=== PATIENT | female | born 1985 | race Caucasian/White ===

== ENCOUNTER → 2018-06-25 09:48 | Outpatient (CLI) | payer MEDICARE, MEDICAID, SELFPAY ==
[2018-06-25 10:58] LABS: FREE T4 1.26 ng/dL (0.76-1.46)
[2018-06-25 21:00] LABS: T3,Free 3.6 pg/ml (2.8-5.3)
== END ==
PROVIDERS: PCP Family Medicine; Visit Provider Family Medicine
DX: F39 Unspecified mood [affective] disorder (principal); G43.009 Migraine without aura, not intractable, without status migrainosus; G93.2 Benign intracranial hypertension; E03.9 Hypothyroidism, unspecified
CPT/HCPCS: 36415; 64405; 99214; 84439; 84443; 84481

== ENCOUNTER → 2018-07-07 01:10 | Outpatient (CLI) | payer MEDICARE, MEDICAID, SELFPAY ==
--- NOTE | 2018-07-07 12:53 | DI.REPORT_ITS ---
SYMPTOMS/DIAGNOSIS: UNABLE TO FIND IUD STRING, MALPOSITIONED IUD, MENORRHAGIA, DYSMENORRHEA, T83.32XA, N92.0, N94.6 PELVIC ULTRASOUND: Transabdominal and transvaginal exams were performed. The transabdominal images are limited by patient body habitus. The uterus measures 9.9 x 4.2 x 6.3 cm. An IUD is seen appropriately positioned within the endometrial cavity. The endometrial stripe measures 3 mm. A small amount of free fluid is seen adjacent to the uterus. The ovaries were not able to be identified. The kidneys are unremarkable. IMPRESSION: IUD appears appropriately positioned within the endometrium.
== END ==
PROVIDERS: PCP Family Medicine; Visit Provider Obstetrics & Gynecology
DX: N92.0 Excessive and frequent menstruation with regular cycle (principal); N94.6 Dysmenorrhea, unspecified; T83.32XA Displacement of intrauterine contraceptive device, initial encounter
CPT/HCPCS: 76830; 76856

== ENCOUNTER → 2018-07-07 15:21 | Outpatient (REF) | payer MEDICARE, MEDICAID, SELFPAY ==
--- NOTE | 2018-07-07 15:00 | ENDOMET_PTH ---
PATIENT: Tricia Calderón LOC: [facility] U#:[id number] AGE/SX: 40/F ROOM: RE07/07/[address]: Kathryn Trammell MD : [id number] BED: DIS: SPEC #: [id number] RECD: 07/07/18 16:48 STATUS: SCOT REQ #: [id number] ANISH: 07/07/18 15:[address]: Kathryn Trammell DEPT: Surgical Specimen RECD BY: Maty Valentin ENTERED: 07/07/18 16:49 SP TYPE: Endomet OTHR DR: Jonathon Luevano MD Tissues: 1 - ENDOMETRIUM BX/CURRETTE Procedures: GROSS AND MICRO LEVEL 4 Comments: [id number]
== END ==
LOC: LBN 15:21
PROVIDERS: PCP Family Medicine; Visit Provider Obstetrics & Gynecology
DX: N85.8 Other specified noninflammatory disorders of uterus (principal); N92.0 Excessive and frequent menstruation with regular cycle; T38.5X5A Adverse effect of other estrogens and progestogens, initial encounter
CPT/HCPCS: 88305

== ENCOUNTER 2019-02-17 17:43 | Emergency (ER) | payer MEDICARE, MEDICAID, SELFPAY ==
[2019-02-17 17:48] VITALS: BP 119/75; PULSE 76; RESP 16; TEMP 36.8; O2SAT 96
--- NOTE | 2019-02-17 17:58 | DI.RAD_ITS ---
SYMPTOM/DIAGNOSIS: PAIN, S/P FALL LEFT FOOT: There is no acute fracture involving the mid foot or forefoot. A distal fibular fracture is identified. Please the dictation regarding the ankle series on this patient. LEFT ANKLE: A fractured lateral malleolus extends to the ankle mortise. There is very minimal lateral angulation of the distal fracture fragment. Also mild widening of the lateral aspect of the talofibular joint is noted without evidence of a hilda dislocation. The medial malleolus is intact. There is generalized soft tissue swelling about the ankle. IMPRESSION: A fracture of the distal fibula is noted extending to the ankle mortise. There is minimal lateral angulation of the distal fragment. There is some very mild widening of the lateral aspect of the tibiotalar joint.
--- NOTE | 2019-02-17 17:59 | W.ED.GENAD ---
Discharge Plan Disposition Patient Disposition: HOME Condition: Stable Discharge Details Chief Complaint: Orthopedic Clinical Impression: Left fibular fracture Primary Care Provider: Addy Bermeo ED Provider: Lucas Lindsey Home Meds and New Rx's Prescriptions: New oxycodone 5 mg tablet 5 mg PO Q6H PRN (Reason: pain) Qty: 10 RF: 0 No Action acetaminophen [Tylenol] 325 MG tablet 325 mg PO PRN RF: 0 hydroxychloroquine [Plaquenil] 200 MG tablet 200 mg PO BID RF: 0 multivitamin [Daily Vitamin] 1 EACH tablet 1 ea PO DAILY RF: 0 Lyrica 150 MG capsule 150 mg PO BID RF: 0 loratadine 10 MG tablet 10 mg PO DAILY 30 Days Qty: 30 RF: 5 albuterol sulfate [Proventil HFA] 6.7 GM HFA aerosol inhaler 2 puff Inhalation Q4H PRN Qty: 1 RF: 2 prochlorperazine maleate 5 MG tablet 1 - 2 tab PO Q8H PRN Qty: 60 RF: 5 levothyroxine 175 mcg tablet 175 mcg PO DAILY Qty: 90 RF: 3 escitalopram oxalate 10 mg tablet 10 mg PO DAILY 90 Days Qty: 90 RF: 3 hydroxyzine HCl 50 MG tablet 1 - 2 mg PO BID RF: 0 Discharge Instructions Instructions: Ankle Fracture (ED) Additional Instructions: call orthopedics in the morning for an appointment for follow up Referrals: Javed Benites MD [ [facility] STAFF PHYSICIAN] - Medical Decision Making Pt states on Friday she was wearing crocs outside and slipped and invertedher left ankle. did not have loc or have head trauma. Has had left ankle pain and foot pain since so came here. HAs swelling to the left lateral malleolus and mid 5th metatarsal, no mid foot pain and 2+ dp/pt pulses. Will obtain xray to eval for fx, likely sprain. Mechanism isn't typical of achilles tendon rupture and doesn't have any palpable defect of the achilles tendon xray shows fibula fracture, I do not see any other fx's on my read. Will place in walking boot and staes she has crutches already, will have her f/u with ortho Differential Diagnosis sprain, strain, fx Imaging Data Radiologic Study: Attestation: I personally reviewed and interpreted this imaging study as follows: Imaging: X-Ray My impression: fibula fracture on ankle xray Radiologic Study #2: Attestation: I personally reviewed and interpreted this imaging study as follows: Imaging: X-Ray My impression: no findings on foot xray other than fibula fx HPI General Mode of arrival: ambulatory. Date/Time Provider Initiated Documentation: 02/17/19 17:55. Limitations to Documentation: no limitations. Information obtained by: patient. History of Present Illness 33 year old F presents to the emergency department with the chief complaint of left ankle and foot pain, described as severe, Quality is described as aching, and is localized to the left and lower extremity. Patient started experiencing this day(s) (3) and it has been constant. Rest improves symptom(s), Movement worsens symptoms . Patient did receive the following treatments prior to arrival, none Related Data Home Medications Medication Instructions Recorded Confirmed acetaminophen [Tylenol] 325 mg PO PRN 08/04/13 02/17/19 hydroxychloroquine [Plaquenil] 200 mg PO BID 08/04/13 02/17/19 Lyrica 150 mg PO BID tab-cap 01/09/15 02/17/19 multivitamin [Daily Vitamin] 1 ea PO DAILY 01/09/15 02/17/19 loratadine 10 mg PO DAILY 30 Days #30 tab-cap 09/08/17 02/17/19 albuterol sulfate [Proventil HFA] 2 puff INHALATION Q4H PRN #1 11/12/17 02/17/19 inhaler prochlorperazine maleate 1 - 2 tab PO Q8H PRN #60 tab-cap 03/25/18 02/17/19 levothyroxine 175 mcg tablet 175 mcg PO DAILY #90 tab-cap 10/26/18 02/17/19 escitalopram 10 mg tablet 10 mg PO DAILY 90 Days #90 tab-cap 02/01/19 02/17/19 hydroxyzine HCl 1 - 2 mg PO BID 02/17/19 02/17/19 oxycodone 5 mg PO Q6H PRN #10 tab 02/17/19 Previous Rx's Medication Instructions Recorded loratadine 10 mg PO DAILY 30 Days #30 tab-cap 09/08/17 albuterol sulfate [Proventil HFA] 2 puff INHALATION Q4H PRN #1 11/12/17 inhaler prochlorperazine maleate 1 - 2 tab PO Q8H PRN #60 tab-cap 03/25/18 levothyroxine 175 mcg tablet 175 mcg PO DAILY #90 tab-cap 10/26/18 escitalopram 10 mg tablet 10 mg PO DAILY 90 Days #90 tab-cap 02/01/19 oxycodone 5 mg PO Q6H PRN #10 tab 02/17/19 Allergies Allergy/AdvReac Type Severity Reaction Status Date / Time hydromorphone HCl Allergy Severe Unverified 02/17/19 17:55 [From Dilaudid] prednisone Allergy Mild Skin Rash Unverified 02/17/19 17:55 codeine AdvReac Severe severe GI Unverified 02/17/19 17:55 upset General Stated Complaint: Orthopedic REY: 4 Review of Systems Review of Systems All systems reviewed & are unremarkable except as noted in HPI and below Constitutional Denies chills and Denies fever(s) ENT Denies change in voice Cardiovascular Denies chest pain and Denies dyspnea Respiratory Denies cough and Denies dyspnea Gastrointestinal Denies abdominal pain, Denies nausea and Denies vomiting Integumentary/Breasts Denies rash PFSH Medical History Attention deficit hyperactivity disorder Cutaneous lupus erythematosus Hypothyroidism Surgical History Appendectomy (~2005) section FRACTURE REPAIR Ligation of fallopian tube Myringotomy w/ PE (pressure equalizing) tubes Oophrectomy, Right (~2008) Family History Mother Mental disorder Father Hyperlipidemia Sister Mental disorder Brother Mental disorder aunt Diabetes uncle Hyperlipidemia Grandfather Diabetes FAMILY HISTORY No problems noted. Social History Smoking/Tobacco Use Status: Current every day Tobacco Type: cigarettes Alcohol Intake: current Alcohol Intake frequency: a few times a month Drug use: Occasionally Substance use type: marijuana Duration: 30-45 minutes/day Frequency: 3-4 times per week Seatbelt use: always Do you feel safe in your relationship?: Yes Exam Const General: no acute distress Orientation: alert HENSC Head: normal to inspection Ears: external ears normal General nose exam: external nose normal Mouth: moist mucous membranes Eyes General: appearance normal, both eyes and all related structures Neck Neck: normal visual inspection Resp Effort & Inspection: normal respiratory effort and able to speak in complete sentences Cardio Rate: regular rate Skin General skin exam: no rashes or lesions noted Neuro General: alert and oriented x3 Extrem General: normal capillary refill Psych Mental Status: mental status grossly normal Course Vital Signs Temperature 36.8 C 02/17/19 17:48 Pulse 76 02/17/19 17:48 Respiratory Rate 16 02/17/19 17:48 Blood Pressure 119/75 02/17/19 17:48 Pulse Oximetry 96 02/17/19 17:48 Temperature 36.8 C 02/17/19 17:48 Temperature Source Skin 02/17/19 17:48 Pulse 76 02/17/19 17:48 Respiratory Rate 16 02/17/19 17:48 Respiratory Effort 02/17/19 17:58 Blood Pressure 119/75 02/17/19 17:48 Blood Pressure Position Sitting 02/17/19 17:48 Pulse Oximetry 96 02/17/19 17:48 Oxygen Delivery Method Room Air 02/17/19 17:48 Oxygen Flow Rate 0 02/17/19 17:48 Pain Level 10 02/17/19 17:57
--- NOTE | 2019-02-17 18:03 | ED.GENADUL_ITS ---
Discharge Plan Disposition Patient Disposition: HOME Condition: Stable Discharge Details Chief Complaint: Orthopedic Clinical Impression: Left fibular fracture Primary Care Provider: Addy Bermeo ED Provider: Lucas Lindsey Home Meds and New Rx's Prescriptions: New oxycodone 5 mg tablet 5 mg PO Q6H PRN (Reason: pain) Qty: 10 RF: 0 No Action acetaminophen [Tylenol] 325 MG tablet 325 mg PO PRN RF: 0 hydroxychloroquine [Plaquenil] 200 MG tablet 200 mg PO BID RF: 0 multivitamin [Daily Vitamin] 1 EACH tablet 1 ea PO DAILY RF: 0 Lyrica 150 MG capsule 150 mg PO BID RF: 0 loratadine 10 MG tablet 10 mg PO DAILY 30 Days Qty: 30 RF: 5 albuterol sulfate [Proventil HFA] 6.7 GM HFA aerosol inhaler 2 puff Inhalation Q4H PRN Qty: 1 RF: 2 prochlorperazine maleate 5 MG tablet 1 - 2 tab PO Q8H PRN Qty: 60 RF: 5 levothyroxine 175 mcg tablet 175 mcg PO DAILY Qty: 90 RF: 3 escitalopram oxalate 10 mg tablet 10 mg PO DAILY 90 Days Qty: 90 RF: 3 hydroxyzine HCl 50 MG tablet 1 - 2 mg PO BID RF: 0 Discharge Instructions Instructions: Ankle Fracture (ED) Additional Instructions: call orthopedics in the morning for an appointment for follow up Referrals: Javed Benites MD [ [facility] STAFF PHYSICIAN] - Medical Decision Making Pt states on Friday she was wearing crocs outside and slipped and invertedher left ankle. did not have loc or have head trauma. Has had left ankle pain and foot pain since so came here. HAs swelling to the left lateral malleolus and mid 5th metatarsal, no mid foot pain and 2+ dp/pt pulses. Will obtain xray to eval for fx, likely sprain. Mechanism isn't typical of achilles tendon rupture and doesn't have any palpable defect of the achilles tendon xray shows fibula fracture, I do not see any other fx's on my read. Will place in walking boot and staes she has crutches already, will have her f/u with ortho Differential Diagnosis sprain, strain, fx Imaging Data Radiologic Study: Attestation: I personally reviewed and interpreted this imaging study as follows: Imaging: X-Ray My impression: fibula fracture on ankle xray Radiologic Study #2: Attestation: I personally reviewed and interpreted this imaging study as follows: Imaging: X-Ray My impression: no findings on foot xray other than fibula fx HPI General Mode of arrival: ambulatory . Date/Time Provider Initiated Documentation: 02/17/19 17:55 . Limitations to Documentation: no limitations . Information obtained by: patient . History of Present Illness 33 year old F presents to the emergency department with the chief complaint of left ankle and foot pain, described as severe, Quality is described as aching, and is localized to the left and lower extremity. Patient started experiencing this day(s) (3) and it has been constant. Rest improves symptom(s), Movement worsens symptoms . Patient did receive the following treatments prior to arrival, none Related Data Home Medications Medication Instructions Recorded Confirmed acetaminophen [Tylenol] 325 mg PO PRN 08/04/13 02/17/19 hydroxychloroquine [Plaquenil] 200 mg PO BID 08/04/13 02/17/19 Lyrica 150 mg PO BID tab-cap 01/09/15 02/17/19 multivitamin [Daily Vitamin] 1 ea PO DAILY 01/09/15 02/17/19 loratadine 10 mg PO DAILY 30 Days #30 tab-cap 09/08/17 02/17/19 albuterol sulfate [Proventil HFA] 2 puff INHALATION Q4H PRN #1 11/12/17 02/17/19 inhaler prochlorperazine maleate 1 - 2 tab PO Q8H PRN #60 tab-cap 03/25/18 02/17/19 levothyroxine 175 mcg tablet 175 mcg PO DAILY #90 tab-cap 10/26/18 02/17/19 escitalopram 10 mg tablet 10 mg PO DAILY 90 Days #90 tab-cap 02/01/19 02/17/19 hydroxyzine HCl 1 - 2 mg PO BID 02/17/19 02/17/19 oxycodone 5 mg PO Q6H PRN #10 tab 02/17/19 Previous Rx's Medication Instructions Recorded loratadine 10 mg PO DAILY 30 Days #30 tab-cap 09/08/17 albuterol sulfate [Proventil HFA] 2 puff INHALATION Q4H PRN #1 11/12/17 inhaler prochlorperazine maleate 1 - 2 tab PO Q8H PRN #60 tab-cap 03/25/18 levothyroxine 175 mcg tablet 175 mcg PO DAILY #90 tab-cap 10/26/18 escitalopram 10 mg tablet 10 mg PO DAILY 90 Days #90 tab-cap 02/01/19 oxycodone 5 mg PO Q6H PRN #10 tab 02/17/19 Allergies Allergy/AdvReac Type Severity Reaction Status Date / Time hydromorphone HCl Allergy Severe Unverified 02/17/19 17:55 [From Dilaudid] prednisone Allergy Mild Skin Rash Unverified 02/17/19 17:55 codeine AdvReac Severe severe GI Unverified 02/17/19 17:55 upset General Stated Complaint: Orthopedic REY: 4 Review of Systems Review of Systems All systems reviewed & are unremarkable except as noted in HPI and below Constitutional Denies chills and Denies fever(s) ENT Denies change in voice Cardiovascular Denies chest pain and Denies dyspnea Respiratory Denies cough and Denies dyspnea Gastrointestinal Denies abdominal pain, Denies nausea and Denies vomiting Integumentary/Breasts Denies rash PFSH Medical History Attention deficit hyperactivity disorder Cutaneous lupus erythematosus Hypothyroidism Surgical History Appendectomy (~2005) section FRACTURE REPAIR Ligation of fallopian tube Myringotomy w/ PE (pressure equalizing) tubes Oophrectomy, Right (~2008) Family History Mother Mental disorder Father Hyperlipidemia Sister Mental disorder Brother Mental disorder aunt Diabetes uncle Hyperlipidemia Grandfather Diabetes FAMILY HISTORY No problems noted. Social History Smoking/Tobacco Use Status: Current every day Tobacco Type: cigarettes Alcohol Intake: current Alcohol Intake frequency: a few times a month Drug use: Occasionally Substance use type: marijuana Duration: 30-45 minutes/day Frequency: 3-4 times per week Seatbelt use: always Do you feel safe in your relationship?: Yes Exam Const General: no acute distress Orientation: alert HENNE Head: normal to inspection Ears: external ears normal General nose exam: external nose normal Mouth: moist mucous membranes Eyes General: appearance normal, both eyes and all related structures Neck Neck: normal visual inspection Resp Effort & Inspection: normal respiratory effort and able to speak in complete sentences Cardio Rate: regular rate Skin General skin exam: no rashes or lesions noted Neuro General: alert and oriented x3 Extrem General: normal capillary refill Psych Mental Status: mental status grossly normal Course Vital Signs Temperature 36.8 C 02/17/19 17:48 Pulse 76 02/17/19 17:48 Respiratory Rate 16 02/17/19 17:48 Blood Pressure 119/75 02/17/19 17:48 Pulse Oximetry 96 02/17/19 17:48 Temperature 36.8 C 02/17/19 17:48 Temperature Source Skin 02/17/19 17:48 Pulse 76 02/17/19 17:48 Respiratory Rate 16 02/17/19 17:48 Respiratory Effort 02/17/19 17:58 Blood Pressure 119/75 02/17/19 17:48 Blood Pressure Position Sitting 02/17/19 17:48 Pulse Oximetry 96 02/17/19 17:48 Oxygen Delivery Method Room Air 02/17/19 17:48 Oxygen Flow Rate 0 02/17/19 17:48 Pain Level 10 02/17/19 17:57
--- NOTE | 2019-02-17 19:06 | DI.VRAD_ITS ---
EXAM: XR Left Ankle Complete, 3 or more Views EXAM DATE/TIME: 02/17/2019 5:59 PM CLINICAL HISTORY: 33 years old, female; Pain; Ankle; Left; Patient HX: Fell a few days ago, pain left ankle TECHNIQUE: Imaging protocol: XR Left ankle 3 or more views. COMPARISON: No relevant prior studies available. FINDINGS: Bones/joints: Acute fracture of the distal fibula extending to the level of the ankle mortise. Minimal lateral angulation of the distal fracture fragment. Mild widening of the lateral aspect of the tibiotalar joint without hilda dislocation. Lateral view was provided with foot films. The medial malleolus is intact. Soft tissues: Generalized soft tissue swelling. IMPRESSION: 1. Acute fracture of the distal fibula extending to the level of the ankle mortise. Minimal lateral angulation of the distal fracture fragment. 2. Mild widening of the lateral aspect of the tibiotalar joint without hilda dislocation. Dictated and Authenticated by: Kristan Azar MD. Ordering:AMANDA Zavala MD
--- NOTE | 2019-02-17 19:07 | DI.VRAD_ITS ---
EXAM: XR Left Foot Complete, 3 or more Views EXAM DATE/TIME: 02/17/2019 6:48 PM CLINICAL HISTORY: 33 years old, female; Pain; Ankle; Left; Patient HX: Fell a few days ago, pain left ankle TECHNIQUE: Imaging protocol: XR Left foot 3 or more views. COMPARISON: No relevant prior studies available. FINDINGS: Bones/joints: No acute fracture or subluxation in the midfoot or forefoot. The posterior malleolus appears intact. Distal fibular fracture. Please see ankle films. Soft tissues: Hindfoot soft tissue swelling. IMPRESSION: 1. No acute fracture or subluxation in the midfoot or forefoot. 2. Distal fibular fracture. Please see ankle films. Dictated and Authenticated by: Kristan Azar MD. Ordering:AMANDA Zavala MD
== END 2019-02-17 19:02 | disposition home or self-care (01) ==
PROVIDERS: Emergency Provider Emergency Medicine; PCP Family Medicine
DX: S82.832A Other fracture of upper and lower end of left fibula, initial encounter for closed fracture (principal); W00.0XXA Fall on same level due to ice and snow, initial encounter
CPT/HCPCS: 27786; 73610; 73630; L4361

== ENCOUNTER 2019-03-01 13:08 | Outpatient (CLI) | payer MEDICARE, MEDICAID, SELFPAY ==
--- NOTE | 2019-03-01 12:53 | DI.RAD_ITS ---
SYMPTOMS/DIAGNOSIS: F/U FRACTURE LEFT ANKLE: Three views. Comparison is 02/17/19. There has been no change in alignment of the distal left fibular fracture. The ankle joint is stable in alignment. No new fractures or dislocations are seen. There does appear to be persistent soft tissue swelling about the ankle.
== END 2019-03-01 13:28 ==
PROVIDERS: PCP Family Medicine; Visit Provider Orthopaedic Surgery
DX: S82.832A Other fracture of upper and lower end of left fibula, initial encounter for closed fracture (principal); W00.0XXA Fall on same level due to ice and snow, initial encounter
CPT/HCPCS: 99201; 99213; 73610

== ENCOUNTER → 2019-07-08 11:10 | Outpatient (BNVA) | payer MEDICARE, MEDICAID, SELFPAY | PROVIDERS: PCP Family Medicine; Visit Provider Psychiatry & Neurology Neurology | DX: G43.001 Migraine without aura, not intractable, with status migrainosus (principal); G93.2 Benign intracranial hypertension | CPT/HCPCS: 99213 ==

== ENCOUNTER → 2020-09-11 08:41 | Outpatient (BNVA) | payer MEDICARE, MEDICAID, SELFPAY | PROVIDERS: PCP Family Medicine; Referring Provider Family Medicine; Visit Provider Psychiatry & Neurology Neurology | DX: G43.001 Migraine without aura, not intractable, with status migrainosus (principal); G93.2 Benign intracranial hypertension; G44.40 Drug-induced headache, not elsewhere classified, not intractable; G89.29 Other chronic pain | CPT/HCPCS: 64405; 99214 ==

== ENCOUNTER 2021-02-22 09:47 | Outpatient (REF) | payer MEDICAID, SELFPAY ==
--- NOTE | 2021-02-22 09:30 | PAPFT_PTH ---
PATIENT: Tricia Calderón LOC: [facility] U#:[id number] AGE/SX: 35/F ROOM: RE02/22/[address]: Pal Brooks NP : 1985 BED: DIS: 02/22/2021 SPEC #: [id number] RECD: 02/22/21 12:56 STATUS: SCOT FERREIRA #: [id number] ANISH: 02/22/21 09:[address]: Pal Brooks DEPT: [facility] Cytology RECD BY: Maty Valentin Tissues: 1 - CX/ENDOCX FOR PAP SMEARS Procedures: PAP THIN PREP/UVM Screening HPV DNA PROBE Comments: [id number] (CHLAMYDIA/GC)
[2021-02-22 12:29] LABS: Abs Immature Grans 0.05 10^3/uL (0.0-0.06); HCT 36.7 % (36.0-46.0); HGB 11.6 g/dL (11.2-15.7); MCH 30.8 pg (27.0-33.0); MCHC 31.6 % (32.0-36.0); MCV 97.3 fL (80-95); MPV 11.7 fL (8.0-11.0); Nucleated RBC 0 %; Platelet Count 449 10^3/uL (130-400); RBC 3.77 10^6/uL (3.93-5.22); WBC 12.69 10^3/uL (4.4-10.8)
[2021-02-22 12:55] LABS: Absolute Eosinophil Count 0.25 10^3/uL (0.0-0.7); Absolute Lymphocyte Count 5.46 10^3/uL (1.2-3.4); Absolute Neutrophil Count 5.58 10^3/uL (1.2-6.7); Atypical Lymphocytes % 7; Diff Comment Manual Differential
[2021-02-22 12:56] LABS: RBC Morphology Normal
[2021-02-22 13:16] LABS: BUN 10 mg/dL (7-18); Calcium 8.9 mg/dL (8.5-10.1); Chloride 105 mmol/L (98-107); Glucose 92 mg/dL (74-106); Potassium 4.3 mmol/L (3.5-5.1); Sodium 139 mmol/L (136-145); TSH (W/Ref FT4) 15.08 uIU/mL (0.36-3.74)
[2021-02-22 13:34] LABS: FREE T4 0.96 ng/dL (0.76-1.46)
[2021-02-23 14:11] LABS: Chlamydia Result Negative (Negative); GC Result Negative (Negative)
== END 2021-02-22 09:48 | disposition home or self-care (01) ==
LOC: LBN 09:47
PROVIDERS: PCP Nurse Practitioner Family; Visit Provider Nurse Practitioner Family
DX: R60.0 Localized edema (principal); N12 Tubulo-interstitial nephritis, not specified as acute or chronic; Z11.3 Encounter for screening for infections with a predominantly sexual mode of transmission; Z12.4 Encounter for screening for malignant neoplasm of cervix; Z11.51 Encounter for screening for human papillomavirus (HPV)
CPT/HCPCS: 80048; 87491; 87591; 88142; 84439; 84443; 85025; 87624

== ENCOUNTER 2022-07-20 14:53 | Emergency (ER) | payer MEDICAID, SELFPAY ==
[2022-07-20 14:56] VITALS: BP 129/85; PULSE 73; RESP 18; TEMP 37; O2SAT 95
--- NOTE | 2022-07-20 15:12 | ED.GENADUL_ITS ---
Discharge Plan Disposition Patient Disposition: HOME Condition: Stable Discharge Details Clinical Impression: Laceration of finger of left hand Primary Care Provider: Pal Brooks ED Provider: Vikas Palacios Home Meds and New Rx's Prescriptions: Continued rizatriptan 5 mg tablet,disintegrating See Rx Instructions PO .COMPLEX Qty: 30 3RF Rx Instructions: take 1 tablet at onset of headache; if no relief, may repeat 1 tablet in 2 hrs PO; 30 = 3 month supply acetazolamide 250 mg tablet 500 mg PO BID Qty: 360 3RF hydroxyzine HCl 50 mg tablet See Rx Instructions PO QHS PRN (Reason: itching; anxiety) Qty: 180 3RF Rx Instructions: 50-100mg PO every day at bedtime PRN; 1-2 HS prn anxiety albuterol sulfate [Proventil HFA] 90 mcg/actuation HFA aerosol inhaler 2 puff Inhalation Q4H PRN Qty: 1 2RF Chantix Starting Month Box 0.5 mg (11)- 1 mg (42) tablets,dose pack See Rx Instructions PO PER PKG DIR Qty: 53 2RF Rx Instructions: PO PER PKG DIR escitalopram oxalate 20 mg tablet 20 mg PO DAILY 30 Days Qty: 90 5RF acetaminophen [Tylenol] 325 MG tablet 325 mg PO PRN hydroxychloroquine [Plaquenil] 200 MG tablet 200 mg PO BID multivitamin [Daily Vitamin] 1 EACH tablet 1 ea PO DAILY pregabalin [Lyrica] 150 MG capsule 150 mg PO BID Rx Instructions: [facility] [place] prochlorperazine maleate 5 MG tablet 1 - 2 tab PO Q8H PRN Qty: 60 5RF Rx Instructions: Take 5-10mg q8hr prn headache or nausea levothyroxine 175 mcg tablet 175 mcg PO DAILY Qty: 30 1RF Discharge Instructions Instructions: Finger Laceration (ED) Additional Instructions: Laceration repaired without difficulty. Tetanus status updated. Rest, elevate, [id number] Tylenol and/or Motrin as directed. Change dressing daily. Sutures should be removed in the next 7-10 days Stand Alone Forms: Work Release Discharge Data Discharge Date/Time-TO BE ENTERED AT DEPARTURE: 07/20/22 15:54 Medical Decision Making 37-year-old female, [id number], tetanus status not up-to-date, presents for a left finger laceration she sustained at work on a knife couple of hours ago. Will update tetanus. Laceration will require repair. Neuro, vascular, tendon intact. Tetanus updated. Laceration repaired without difficulty. Dressing applied. Work note provided for today. Standard discharge and return precautions were provided. Patient understands, is agreeable to this plan, and has no additional questions or concerns upon discharge. This documentation was generated using [employer] system, please disregard any oddities of phrase or misspellings. Medical Records Medical records reviewed: Yes I reviewed the patient's medical records. HPI General Mode of arrival: ambulatory . Date/Time Provider Initiated Documentation: 07/20/22 14:58 . Limitations to Documentation: no limitations . Information obtained by: patient . History of Present Illness 37 year old F presents to the emergency department with the chief complaint of L ring finger lac, described as moderate, with intensity rated at 4. Quality is described as aching, and is localized to the left and upper extremity. Patient reports no radiation. Patient started experiencing this hour(s) (2) and it has been constant. No relieving factors improve symptom(s), Movement worsens symptoms . Patient notes no other symptoms.. Patient did receive the following treatments prior to arrival, none Related Data Home Medications Medication Instructions Recorded Confirmed acetaminophen 325 mg tablet 325 mg PO PRN 08/04/13 07/20/22 (Tylenol) hydroxychloroquine 200 mg tablet 200 mg PO BID 08/04/13 02/22/21 (Plaquenil) multivitamin (Daily Vitamin tablet) 1 ea PO DAILY 01/09/15 02/22/21 pregabalin 150 mg capsule (Lyrica) 150 mg PO BID 01/09/15 02/22/21 prochlorperazine maleate 5 mg 1 - 2 tab PO Q8H PRN #60 tab-caps 03/25/18 02/22/21 tablet rizatriptan 5 mg disintegrating See Rx Instructions PO .COMPLEX 02/07/20 02/22/21 tablet #30 tabs acetazolamide 250 mg tablet 500 mg PO BID #360 tabs 09/11/20 02/22/21 hydroxyzine HCl 50 mg tablet See Rx Instructions PO QHS PRN 09/13/20 02/22/21 itching; anxiety #180 tabs albuterol sulfate 90 mcg/actuation 2 puff inhalation Q4H PRN ##1 10/11/20 02/22/21 aerosol inhaler (Proventil HFA) varenicline 0.5 mg (11)-1 mg (42) See Rx Instructions PO PER PKG DIR 10/11/20 02/22/21 tablets in a dose pack (Chantix #53 dose pk Starting Month Box) escitalopram oxalate 20 mg tablet 20 mg PO DAILY 30 days #90 tab-caps 02/22/21 02/22/21 levothyroxine 175 mcg tablet 175 mcg PO DAILY #30 tab-caps 06/01/21 Previous Rx's Medication Instructions Recorded prochlorperazine maleate 5 mg 1 - 2 tab PO Q8H PRN #60 tab-caps 03/25/18 tablet rizatriptan 5 mg disintegrating See Rx Instructions PO .COMPLEX 02/07/20 tablet #30 tabs acetazolamide 250 mg tablet 500 mg PO BID #360 tabs 09/11/20 hydroxyzine HCl 50 mg tablet See Rx Instructions PO QHS PRN 09/13/20 itching; anxiety #180 tabs albuterol sulfate 90 mcg/actuation 2 puff inhalation Q4H PRN ##1 10/11/20 aerosol inhaler (Proventil HFA) varenicline 0.5 mg (11)-1 mg (42) See Rx Instructions PO PER PKG DIR 10/11/20 tablets in a dose pack (Chantix #53 dose pk Starting Month Box) escitalopram oxalate 20 mg tablet 20 mg PO DAILY 30 days #90 tab-caps 02/22/21 levothyroxine 175 mcg tablet 175 mcg PO DAILY #30 tab-caps 06/01/21 Allergies Allergy/AdvReac Type Severity Reaction Status Date / Time hydromorphone HCl Allergy Severe Lips swell Verified 07/21/22 07:27 [From Dilaudid] prednisone Allergy Mild Skin Rash Verified 07/20/22 15:07 codeine AdvReac Severe severe GI Verified 07/20/22 15:07 upset General Stated Complaint: Laceration REY: 4 Review of Systems Constitutional Constitutional: Denies fever(s) and Denies weakness Musculoskeletal Musculoskeletal: Denies arthralgias, Denies numbness, Denies stiffness and Reports tingling Integumentary/Breasts Skin/Breast: Denies erythema Neurologic Neurologic: Denies numbness, Reports tingling and Denies weakness PFSH All Active Problems (Updated 07/20/22 @ 15:34 by JERARDO Temple) Laceration of finger of left hand (Acute) Depression (Chronic) Unspecified mood [affective] disorder (Acute) Chronic headache (Acute) Medication overuse headache (Acute) Chronic pain (Acute) RECURRENT BACK AND NECK PAIN NARCOTIC CONTRACT VOIDED AT [facility] 10/2014 Fibromyalgia (Acute 05/01/15) like symptoms Idiopathic intracranial hypertension (Acute 03/25/18) Mood disorder (Acute 10/08/17) SLE (systemic lupus erythematosus) (Acute 09/03/11) SLE/POSITIVE ANTICARDIOLIPIN, 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, dsDNA 1:180, C3 37, C4 2, LAC-, ANTI-CARDIOLIPIN IgG 49, IgM 3, Kikuchi-like presenttion with diffuse LAD, TT echo norla, Migraine without aura and with status migrainosus, not intractable (Acute 04/22/18) Menorrhagia (Acute 08/04/13) Hypothyroidism (Acute 04/09/10) Pyelonephritis (Acute 08/22/17) [facility] ED- RIGHT Leukocytosis (Acute 11/14/10) Dysmenorrhea (Acute 08/04/13) Anasarca (Acute 08/06/11) ADD (attention deficit disorder) (Acute 05/01/15) Pyelonephritis (Acute) Medical History Attention deficit hyperactivity disorder Closed fracture of distal end of left fibula (02/17/19) Hypothyroidism Surgical History Appendectomy (~2005) section x2 FRACTURE REPAIR 2008; NOSE, LEFT CHEEK BONE, RIGHT ORBITAL FX Ligation of fallopian tube 2008 LTL Myringotomy w/ PE (pressure equalizing) tubes MULTIPLE TIMES BETWEEN AGES 2-10 Oophrectomy, Right (~2008) Family History Mother Mental disorder Father Hyperlipidemia Sister Mental disorder Brother Mental disorder aunt Diabetes uncle Hyperlipidemia Grandfather Diabetes Social History Smoking/Tobacco Use Status: Former Tobacco Use Smoking risk assessment performed?: Yes Alcohol Intake: current Alcohol Intake frequency: a few times a month Drug use: Occasionally Substance use type: marijuana Caregiver/Support person: No Household members: children Housing: apartment Number of Children: 2 current occupation: Disabled Pets and animals: Yes Pets and animals: dog(s) Sexually active: No Current gender identity: female What is your relationship status?: never How often do you talk on the phone with friends or family?: never How often do you get together with friends or relatives?: decline to answer Do you belong to any clubs or organized social groups?: no Panel score (0-1 are the most socially isolated patients): 0 Duration: 30-45 minutes/day Frequency: 3-4 times per week Seatbelt use: always Helmet use: No Drive intox or ride w/intox set key driver: No Do you feel safe at home: Yes Do you feel safe in your relationship?: Yes Exam Const General: cooperative, healthy appearing, comfortable and no acute distress Orientation: alert and awake [facility] Head: normal to inspection, normocephalic and atraumatic Mouth: moist mucous membranes Eyes Conjunctivae: conjunctivae normal Neck Neck: normal visual inspection, trachea midline and supple Resp Effort & Inspection: normal respiratory effort and able to speak in complete sentences Cardio Rate: regular rate Rhythm: regular rhythm Skin General skin exam: no rashes or lesions noted Neuro General: patient alert, patient awake, moves all extremities and no focal motor deficits Cognition: normal cognition Speech: speech normal Gait: normal gait Sensory Exam: no sensory deficits noted Extrem General: full ROM and capillary refill normal Hand/finger images: 1. Left ring finger with a 2 cm laceration. No active bleeding or foreign body. Minimal discomfort to palpation. 5 out of 5 strength. Neuro, vascular, tendon intact. Normal capillary refill and radial pulse. Psych Appearance: grossly normal Mental Status: mental status grossly normal Course Vital Signs Vital signs: Vital Signs Temperature 37.0 C 07/20/22 14:56 Pulse 73 07/20/22 14:56 Respiratory Rate 18 07/20/22 14:56 Blood Pressure 129/85 07/20/22 14:56 Pulse Oximetry 95 07/20/22 14:56 Temperature 37.0 C 07/20/22 14:56 Temperature Source Temporal Artery Scan 07/20/22 14:56 Pulse 73 07/20/22 14:56 Respiratory Rate 18 07/20/22 14:56 Respiratory Effort Non-Labored 07/20/22 15:01 Blood Pressure 129/85 07/20/22 14:56 Blood Pressure Position Sitting 07/20/22 14:56 Pulse Oximetry 95 07/20/22 14:56 Oxygen Delivery Method Room Air 07/20/22 14:56 Oxygen Flow Rate 0 07/20/22 14:56 Pain Level 6 07/20/22 14:56 Procedures Laceration Laceration 1: Site: hand Side (If applicable): left Size (cm): 2 Description: linear Depth: simple, single layer Local Anesthetic: Lidocaine 1%, Bupivicaine 0.5% and other anesthetic ([id number] mixture) Amount of anesthesia used (mL): 5 Pre-repair: wound explored, irrigated extensively and deep structures intact Skin layer closed with: nylon Size (cm): 4-0 Number of sutures: 3 Technique: simple, interrupted
[2022-07-20] MEDS: Povidone-Iodine Soln. 118 ML BTL (15:52)
== END 2022-07-20 15:54 | disposition home or self-care (01) ==
PROVIDERS: Emergency Provider Physician Assistant; PCP Nurse Practitioner Family
DX: S61.215A Laceration without foreign body of left ring finger without damage to nail, initial encounter (principal); F90.9 Attention-deficit hyperactivity disorder, unspecified type; Z87.891 Personal history of nicotine dependence; X58.XXXA Exposure to other specified factors, initial encounter
CPT/HCPCS: 12001; 96372; 99284

== ENCOUNTER 2022-11-15 01:31 | Outpatient (CLI) | payer MEDICAID, SELFPAY ==
[2022-11-15 11:18] LABS: HGB 8.4 g/dL (11.2-15.7); MCH 27.3 pg (27.0-33.0); MCHC 32.3 % (32.0-36.0); MCV 84 fL (80-95); MPV 8.8 fL (8.0-11.0); Platelet Count 451 10^3/uL (130-400); RBC 3.08 10^6/uL (3.93-5.22); RDW 19.2 % (11.7-14.6); RDW-SD 58.5 fL; WBC 10.01 10^3/uL (4.4-10.8)
[2022-11-15 11:35] LABS: Hemoglobin A1C 5.5 % (<5.7)
[2022-11-15 11:59] LABS: Calculated LDL 176 mg/dL (<100); Cholesterol 265 mg/dL (<200); HDL Cholesterol 72 mg/dL (40-60); Triglyceride 87 mg/dL (<150)
[2022-11-15 12:53] LABS: TSH (W/Ref FT4) 184.86 uIU/mL (0.36-3.74)
[2022-11-15 13:10] LABS: FREE T4 0.22 ng/dL (0.76-1.46)
== END 2022-11-15 01:32 | disposition home or self-care (01) ==
LOC: LBO 01:31
PROVIDERS: PCP Nurse Practitioner Family; Visit Provider Nurse Practitioner Family
DX: E03.9 Hypothyroidism, unspecified (principal); D72.829 Elevated white blood cell count, unspecified; Z13.220 Encounter for screening for lipoid disorders; Z13.1 Encounter for screening for diabetes mellitus
CPT/HCPCS: 36415; 80061; 85027; 83036; 84439; 84443

== ENCOUNTER 2022-11-20 02:39 | Outpatient (CLI) | payer MEDICAID, SELFPAY ==
[2022-11-21 09:39] LABS: Thyroglobulin Antibody 77 U/mL (<=60); Thyroperoxidase Antibody >1300 U/mL (<=60)
== END 2022-11-20 02:40 | disposition home or self-care (01) ==
LOC: LOS 02:39
PROVIDERS: PCP Nurse Practitioner Family; Visit Provider Nurse Practitioner Family
DX: E03.9 Hypothyroidism, unspecified (principal)
CPT/HCPCS: 36415; 86376

== ENCOUNTER 2023-07-02 02:43 | Outpatient (CLI) | payer MEDICAID, SELFPAY ==
[2023-07-02 12:27] LABS: HCT 23.8 % (36.0-46.0); HGB 7.5 g/dL (11.2-15.7); MCH 26.1 pg (27.0-33.0); MCHC 31.5 % (32.0-36.0); MCV 83 fL (80-95); MPV 11.4 fL (8.0-11.0); Platelet Count 482 10^3/uL (130-400); RBC 2.87 10^6/uL (3.93-5.22); RDW 19.3 % (11.7-14.6); RDW-SD 58.4 fL; WBC 8.64 10^3/uL (4.4-10.8)
[2023-07-02 12:51] LABS: ALT 130 U/L (14-59); AST 200 U/L (15-37); Albumin 3.3 g/dL (3.4-5.0); Anion Gap 7.1 mmol/L (3-11); BUN 10 mg/dL (7-18); Bilirubin, Total 0.4 mg/dL (0.2-1.0); CO2 28.9 mmol/L (21.0-32.0); Calcium 9.7 mg/dL (8.5-10.1); Chloride 106 mmol/L (98-107); Estimated GFR 74.41 (mL/min/1.73m2); Glucose 90 mg/dL (74-106); Lipase 49 U/L (16-77); Potassium 4.3 mmol/L (3.5-5.1); Sodium 142 mmol/L (136-145); Total Protein 8.3 g/dL (6.4-8.2)
[2023-07-02 13:12] LABS: Alkaline Phosphatase 1239 U/L (46-116)
[2023-07-02 13:38] LABS: TSH (W/Ref FT4) 214.65 uIU/mL (0.36-3.74)
[2023-07-02 13:39] LABS: FREE T4 0.24 ng/dL (0.76-1.46)
== END 2023-07-02 02:44 | disposition home or self-care (01) ==
LOC: LOS 02:43
PROVIDERS: PCP Nurse Practitioner Family; Visit Provider Nurse Practitioner Family
DX: E03.9 Hypothyroidism, unspecified (principal); R63.4 Abnormal weight loss
CPT/HCPCS: 36415; 80053; 83690; 85027; 84439; 84443

== ENCOUNTER 2023-07-08 03:14 | Outpatient (CLI) | payer MEDICAID, SELFPAY ==
[2023-07-08 12:14] LABS: Abs Immature Grans 0.04 10^3/uL (0.0-0.06); Absolute Basophil Count 0.16 10^3/uL (0.0-0.2); Absolute Eosinophil Count 0.57 10^3/uL (0.0-0.7); Absolute Lymphocyte Count 3.55 10^3/uL (1.2-3.4); Absolute Monocyte Count 0.95 10^3/uL (0.1-0.8); Absolute Neutrophil Count 3.31 10^3/uL (1.2-6.7); Basophils % 1.9; Eosinophils % 6.6; HCT 25.7 % (36.0-46.0); HGB 7.9 g/dL (11.2-15.7); Immature Grans % 0.5; Lymphocytes % 41.4; MCH 25.8 pg (27.0-33.0); MCHC 30.7 % (32.0-36.0); MCV 84 fL (80-95); MPV 10.1 fL (8.0-11.0); Monocytes % 11.1; Neutrophils % 38.5; Platelet Count 497 10^3/uL (130-400); RBC 3.06 10^6/uL (3.93-5.22); RDW-SD 57.6 fL; WBC 8.58 10^3/uL (4.4-10.8)
[2023-07-08 12:20] LABS: Iron 19 ug/dL (50-170); Total Iron Binding Capacity 453 ug/dL (250-450); Transferrin Sat 4 % (15-50)
[2023-07-08 12:23] LABS: ESR 81 mm/hr (0-20)
[2023-07-08 13:18] LABS: Ferritin 10 ng/mL (8-252); Vitamin B12 1420 pg/mL (193-986)
[2023-07-08 13:29] LABS: C-Reactive Protein 0.31 mg/dL (0.0-0.3)
[2023-07-09 10:45] LABS: Transferrin 358 mg/dL (201-352)
[2023-07-09 10:53] LABS: Hepatitis A Antibody IgM Negative (Negative); Hepatitis B Core Antibody Negative (Negative); Hepatitis B surface Ag Negative (Negative); Hepatitis C Ab w Rflx HCV PCR Negative (Negative)
== END 2023-07-08 03:15 | disposition home or self-care (01) ==
LOC: LOS 03:14
PROVIDERS: PCP Nurse Practitioner Family; Visit Provider Nurse Practitioner Family
DX: D64.9 Anemia, unspecified (principal); R63.4 Abnormal weight loss
CPT/HCPCS: 36415; 85652; 86704; 86709; 86803; 87340; 82607; 82728; 83540; 83550; 84466; 85025; 86140

== ENCOUNTER → 2023-07-24 00:14 | Outpatient (CLI) | payer MEDICAID, SELFPAY ==
--- NOTE | 2023-07-24 09:00 | DI.CT_ITS ---
Exam(s) CT ABDOMEN PELVIS W EXAM: CT ABDOMEN PELVIS W CLINICAL HISTORY: elevated liver enzyme, 40 lbs wt loss, anemia TECHNIQUE: Imaging Protocol: Axial computed tomography images with coronal and sagittal reformatted images were created and reviewed CONTRAST MATERIAL: Intravenous: Omnipaque 350 Contrast volume:100 mL Oral: Yes COMPARISON: CT ABD PELVIS WITH CONTRAST from 08/22/2017 FINDINGS: ABDOMEN: Lung Bases: Normal where visualized. Liver: Normal density. No measurable mass. Portal, Superior Mesenteric, and Splenic Veins: Unremarkable. Gallbladder and Biliary Tract: No radiodense calculus or dilation. Pancreas: Normal density, no abnormal calcifications or inflammatory process. Spleen: The spleen is small and calcified. Adrenals: No masses seen. Kidneys: Normal size, contour and axis. Left nephrolithiasis. No hydronephrosis. There is a 1.1 cm simple cyst in the lower pole of the left kidney. Abdominal Aorta: Abdominal portion non-dilated. Bowel: No obstruction or bowel wall thickening. There is stool throughout the colon suggesting consti pation. There is no evidence of appendicitis. Peritoneal Cavity: There is a small amount of abdominal pelvic ascites. No free air. Lymph Nodes: There are stable mildly enlarged lymph nodes in the retroperitoneum Bones: Within normal limits for the patient's age. Soft Tissues: There is a small fat containing umbilical hernia. PELVIS: Bladder: Symmetric distention, no gross wall thickening. Reproductive Organs: Unremarkable as visualized. Lymph Nodes: Within normal limits. Bones: Within normal limits for the patient's age. IMPRESSION: 1. Small amount of abdominal pelvic ascites. 2. Stable size of the periaortic adenopathy. This is unchanged since 2017. 3. No evidence of a hepatic, pancreatic or renal mass. 4. Constipation. No evidence of bowel obstruction or of bowel wall thickening. RADIATION DOSE DELIVERED: 932.83mGy.cm Total DLP DATA REPOSITORY: All CT scans at this facility are submitted to the National Radiology Data Registry (NRDR) Dose Index Registry (DIR) with the [employer] ([employer]). RADIATION OPTIMIZATION: All CT scans at this facility use at least one of these dose optimization te chniques: automated exposure control; mA and/or kV adjustment per patient size (includes targeted exa ms where dose is matched to clinical indication); or iterative reconstruction.
[2023-07-24] MEDS: Omnipaque 350 MG/ML 100 ML BTL IJ (14:53)
[2023-07-24] MEDS: Normal Saline - Diluent 50 ML VIAL IJ (14:54)
== END ==
PROVIDERS: PCP Nurse Practitioner Family; Visit Provider Nurse Practitioner Family
DX: R18.8 Other ascites; K59.00 Constipation, unspecified
CPT/HCPCS: 74177; J3490

== ENCOUNTER 2023-08-01 02:15 | Outpatient (CLI) | payer MEDICAID, SELFPAY ==
[2023-08-01 14:39] LABS: HCT 21.9 % (36.0-46.0); MCH 26.4 pg (27.0-33.0); MCV 83 fL (80-95); MPV 9.3 fL (8.0-11.0); Platelet Count 370 10^3/uL (130-400); RBC 2.65 10^6/uL (3.93-5.22); RDW 17.9 % (11.7-14.6); WBC 9.44 10^3/uL (4.4-10.8)
[2023-08-01 16:27] LABS: Iron 17 ug/dL (50-170); Total Iron Binding Capacity 458 ug/dL (250-450)
[2023-08-01 17:52] LABS: ALT 103 U/L (14-59); AST 154 U/L (15-37); Albumin 3.4 g/dL (3.4-5.0); Anion Gap 7.9 mmol/L (3-11); BUN 19 mg/dL (7-18); Bilirubin, Total 0.4 mg/dL (0.2-1.0); CO2 28.1 mmol/L (21.0-32.0); CREATININE 1.1 mg/dL (0.55-1.02); Calcium 9.6 mg/dL (8.5-10.1); Chloride 101 mmol/L (98-107); Estimated GFR 66.37 (mL/min/1.73m2); Glucose 83 mg/dL (74-106); Potassium 3.9 mmol/L (3.5-5.1); Sodium 137 mmol/L (136-145); Total Protein 8.7 g/dL (6.4-8.2)
[2023-08-01 17:56] LABS: Alkaline Phosphatase 1088 U/L (46-116)
[2023-08-01 18:44] LABS: FREE T4 0.18 ng/dL (0.76-1.46)
== END 2023-08-01 02:16 | disposition home or self-care (01) ==
LOC: LBO 02:16
PROVIDERS: PCP Nurse Practitioner Family; Visit Provider Nurse Practitioner Family
DX: E03.9 Hypothyroidism, unspecified (principal); R63.4 Abnormal weight loss; D64.9 Anemia, unspecified
CPT/HCPCS: 36415; 80053; 85027; 83540; 83550; 84439; 84443

== ENCOUNTER 2023-08-01 17:04 | Inpatient (IN) | payer MEDICAID, SELFPAY ==
[2023-08-01] VITALS (59 sets, daily range): BP systolic 86–113; BP diastolic 49–97; PULSE 43–58; RESP 0–22; TEMP 36.2–36.4; O2SAT 79–100
--- NOTE | 2023-08-01 17:46 | ED.GENADUL_ITS ---
Discharge Plan Disposition Patient Disposition: Admit to [facility] Condition: Poor Discharge Details Chief Complaint: Abd Prob Clinical Impression: Hypothyroidism, Low hemoglobin, Elevated liver enzymes, Myxedema, Iron deficiency anemia, Sinus bradycardia, Abdominal pain, Constipation Admit Date/Time: 08/01/23 21:22 Admit Provider: Vikas Milian Attending Provider: Vikas Milian Primary Care Provider: Pal Brooks ED Provider: Catherine Saul Discharge Data Discharge Date/Time-TO BE ENTERED AT DEPARTURE: 08/01/23 23:12 Medical Decision Making Patient is a pleasant 38 year old female with past medical history of hyp othyroidism, SLE, depression, fibromyalgia, ADD, presenting with concern for c/c of abdominal pain and anemia. She was advised to go to ER for possible transfusion. She reports that she does have a history of chronic anemia, unclear etiology. Patient is concerned that with the abdominal pain and anemia she may have abdominal cancer. States that she has had no change in her urinary habits but does endorse some constipation which has been a chronic issue for her. She denies any dark or tarry stools, no blood in her stools. Denies any easy bruising, hemoptysis, hematemesis. States that she has been losing weight and has lost a significant amount of weight over the recent years. Is no longer using any medications for hypothyroidism or her systemic lupus as she did not like the way these meds made her feel. States that when she is treating her hypothyroidism, she feels significantly better on Synthroid rather than levothyroxine and as her insurance will not cover the Synthroid, she has not been taking it. She reports that she has had chronic pain which she associates with bone pain. States that her lupus was initially found in the bone and is questioning if she may have issues within the bone once again. States that her chronic malaise and chronic health conditions which seem to have exacerbated over the past few weeks associated with her getting a second job and having i ncreased stress and difficulty sleeping. This been particularly bad over the past 2 days prompting the evaluation by her primary care. Is not currently taking any medications, does take a daily vitamin. Trying to self treat her chronic illnesses with improved diet. No fevers but states she has had difficulty with cold intolerance for some time. On exam, patient appears nontoxic. She is slightly hypotensive and and is noted to be bradycardic with a heart rate in the 40s. She is not feeling dizzy or lightheaded at this time. No chest pain or palpitations. Her lungs are clear. Aside from the bradycardia, normal cardiac exam. Abdominal exam is concerning for some firmness along the right side of her abdomen. No significant tenderness over this region. No pain elsewhere with palpation. She does indicate the right side of the abdomen is area of acute on chronic discomfort. Denies any vaginal discharge. No rashes appreciated. Reviewed the recent labs and do note that the patient's hemoglobin was 7.0. Plan to repeat this. We will also obtain a type and screen. Unclear etiology. She is not endorsing any symptoms that point towards a GI source. However, this could be associated with SLE and it affecting the kidneys and decrease EPO. Also considered this affecting her bone marrow once again and production. Also considered sequestration versus hemolysis. While the patient concerned for cancer, she does not have any familial history. Plan to obtain imaging of the abdomen for further evaluation. Did consider hypothyroidism given her bradycardia in the setting of significant anemia. Also considered potential tickborne illness and will obtain a tick and Lyme panel. Patient also reports that she has had issues with her liver in the past, will evaluate for coag ulopathy leading to her anemia. ECG was obtained and reviewed by Dr. Sugar Morelos. Significant for bradycardia but no acute ischemic pathology, no blocks no other arrhythmias noted. Labs reviewed. White count within normal limits. Hemoglobin 7.2. PT PTT within normal limits. Creatinine slightly elevated at 1.1. Potassium within normal limits. Her LFTs are all elevated with a AST of 146, ALT 104, alk phos 1069. The elevated alk phos does have any concern potential bone involvement of her SLE. Her TSH is significantly elevated to 56 with a free T4 of 0.16. Lipase within normal limits. Concerned with this and patient's clinical presentation for myxedema coma. Given her elevated LFTs we will also obtain a hepatitis panel. Imaging reviewed by myself, concerned for signficant constipation, this is in the area that is palpable along the right side of the abdomen. Constipation likely associated with signficant hypothyroidism. Imaging reviewed by radiologist: FINDINGS: Lungs: Lung bases are clear. Pleural spaces: No pleural effusion. Heart: Normal heart size. No pericardial effusion. No coronary artery atherosclerotic calcium is visible. Liver: Diffuse mild fatty liver infiltration. Moderate hepatic enlargement. Transverse diameter of the liver is 24 cm. Cephalo caudal length of the liver 18 cm. Gallbladder and bile ducts: The gallbladder is normal in size and shape. No stones or inflammatory changes. Pancreas: Pancreas is normal in contour. There is mild pancreatic fullness. Features suggesting mild pancreatic inflammation. Consider acute pancreatitis. Recommend correlation with pancreatic serology. There is no pancreatic ductal dilatation. 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 Adrenal glands: The adrenal glands are normal in size and contour bilaterally. Kidneys and ureters: The kidneys bilaterally are unremarkable. Normal attenutation. No hydronephrosis. No calculi. Stomach and bowel: Gastric morphology is unremarkable. No edema. No gastric outlet obstruction. Small bowel loops with some mild fluid retention. No mechanical obstruction. This may represent a minor ileus or enteritis. Large bowel contains enteric contrast. There is no large bowel obstruction. There is no acute edema. There is formed feces with moderate fecal retention. Appendix: Previous appendectomy. Intraperitoneal space: Minor simple free fluid in the right colic gutter and adjacent to the tip of the liver. There is minimal free fluid in the left colic gutter. No free air. Vasculature: Unremarkable. No abdominal aortic aneurysm. Lymph nodes: Nonspecific subcentimeter retroperitoneal lymph nodes. No enlarged lymph nodes. Urinary bladder: Unremarkable as visualized. Reproductive: The uterus and adnexa are unremarkable in appearance. There are no dominant adnexal cysts or masslike features. There are no inflammatory features. No uterine mass evident. Appearance suggesting an intra vaginal menstrual tampon device. Bones/joints: No acute skeletal change. Soft tissues: Abdominal wall soft tissues are diffuse mild subcutaneous fatty stranding. Possibility of an anasarca process should be considered. Small fat containing right inguinal hernia without acute features. IMPRESSION: 1. ? Pancreatic parenchymal fullness and mild peripancreatic inflammatory features suggesting acute pancreatitis. Recommend clinical correlation with pancreatic serology. No gallstones. No pancreatic ductal or biliary ductal dilatation. 2. ? Hepatic steatosis and [id number] hepatic enlargement. 3. ? Spleen with features of auto infarction. Small size and hyperdense appearance. 4. ? Small bowel loops suggesting a mild enteritis process. 5. ? Minor simple free fluid in the abdomen and pelvic region. Discussed with patient. She has several issues, primarily myxedema coma with hypotension, bradycardia, anemia. Will begin treatment for this. Also concerned for SLE contributing to her symptoms. With location of pain and lipase negative, I find pancretitis unlikely. Discussed concerns with patient and she is agreeable to admission. Consulted with Dr. Milian who agrees to admission for Myxedema coma. Given 300 IV levothyroxine, will also give steroids, fluid rate. Patient admitted to medical surgical floor, hospitalist evaluated prior to admission. HPI General Date/Time Provider Initiated Documentation: 08/01/23 17:30 . Limitations to Documentation: no limitations . Information obtained by: patient and RN notes reviewed . History of Present Illness 38 year old F presents to the emergency department with the chief complaint of anemia of unknown cause, advised to come in for transfusion, abdominal pain, described as moderate, with intensity rated at 4. Quality is described as aching, and is localized to the back (chronic back and bone pain) and abdomen. Patient reports no radiation. Patient started experiencing this day(s) (has chronic illnesses, more fatigued x 2days) and it has been constant. No relieving factors improve symptom(s), No exacerbating factors reported . Patient notes loss of appetite, malaise and weakness (generalized fatigue, no focal complaints); denies chest pain, cough, fever/ chills (has felt very cold), nausea/vomiting, rash and shortness of breath. Patient did receive the following treatments prior to arrival, none Related Data Home Medications Medication Instructions Recorded Confirmed multivitamin with minerals-folic 1 tab PO 11/11/22 06/27/23 acid 200 mcg chewable tablet (Multivitamin Gummies) ferrous sulfate 324 mg (65 mg 324 mg PO DAILY #90 tabs 07/25/23 iron) tablet,delayed release levothyroxine 125 mcg tablet 125 mcg PO DAILY #90 tabs 07/25/23 (Synthroid) Previous Rx's Medication Instructions Recorded ferrous sulfate 324 mg (65 mg 324 mg PO DAILY #90 tabs 07/25/23 iron) tablet,delayed release levothyroxine 125 mcg tablet 125 mcg PO DAILY #90 tabs 07/25/23 (Synthroid) Allergies Allergy/AdvReac Type Severity Reaction Status Date / Time hydromorphone HCl Allergy Severe Lips swell Verified 06/27/23 14:20 [From Dilaudid] prednisone Allergy Mild Skin Rash Verified 06/27/23 14:20 codeine AdvReac Severe severe GI Verified 06/27/23 14:20 upset General Stated Complaint: Abd Prob REY: 3 Review of Systems Constitutional Constitutional: Reports as per HPI, Denies fever(s) and Denies headache(s) ENT Ears, Nose, Mouth, and Throat: Denies headache(s) Cardiovascular Cardiovascular: Reports as per HPI, Denies chest pain and Denies dyspnea Respiratory Respiratory: Reports as per HPI, Denies cough and Denies dyspnea Gastrointestinal Gastrointestinal: Reports as per HPI Musculoskeletal Musculoskeletal: Reports as per HPI and Denies back pain Integumentary/Breasts Skin/Breast: Reports as per HPI and Denies rash Neurologic Neurologic: Reports as per HPI and Denies headache(s) [facility] All Active Problems (Updated 08/02/23 @ 14:28 by JERARDO Montague) Constipation (Acute) Abdominal pain (Acute) Sinus bradycardia (Acute) BELTRAN (nonalcoholic steatohepatitis) (Acute) Iron deficiency anemia (Acute) Myxedema (Acute) Elevated liver enzymes (Acute) Low hemoglobin (Acute) Weight loss (Acute) Hypothyroidism (Chronic) IUD (intrauterine device) in place (Acute) Depression (Chronic) Unspecified mood [affective] disorder (Acute) Chronic pain (Acute) RECURRENT BACK AND NECK PAIN NARCOTIC CONTRACT VOIDED AT [facility] 10/2014 Fibromyalgia (Acute 05/01/15) like symptoms Idiopathic intracranial hypertension (Acute 03/25/18) SLE (systemic lupus erythematosus) (Acute 09/03/11) SLE/POSITIVE ANTICARDIOLIPIN, 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, dsDNA 1:180, C3 37, C4 2, LAC-, ANTI-CARDIOLIPIN IgG 49, IgM 3, Kikuchi-like presenttion with diffuse LAD, TT echo norla, Hypothyroidism (Acute 04/09/10) Leukocytosis (Acute 11/14/10) Anasarca (Acute 08/06/11) ADD (attention deficit disorder) (Acute 05/01/15) Medical History Closed fracture of distal end of left fibula (02/17/19) Migraine without aura and with status migrainosus, not intractable (04/22/18) Pyelonephritis (08/22/17) [facility] ED- RIGHT Surgical History Appendectomy (~2005) section x2 FRACTURE REPAIR 2008; NOSE, LEFT CHEEK BONE, RIGHT ORBITAL FX Ligation of fallopian tube 2008 LTL Myringotomy w/ PE (pressure equalizing) tubes MULTIPLE TIMES BETWEEN AGES 2-10 Oophrectomy, Right (~2008) Family History Mother Mental disorder Father Hyperlipidemia Sister Mental disorder Brother Mental disorder aunt Diabetes uncle Hyperlipidemia Grandfather Diabetes Social History Smoking/Tobacco Use Status: Former Tobacco Use Smoking risk assessment performed?: Yes Alcohol Intake: former Drug use: Occasionally Substance use type: marijuana Caregiver/Support person: No Household members: children Housing: apartment Number of Children: 2 current occupation: Disabled Pets and animals: Yes Pets and animals: dog(s) Sexually active: No Current gender identity: female What is your relationship status?: never How often do you talk on the phone with friends or family?: once per week How often do you get together with friends or relatives?: once per week Do you belong to any clubs or organized social groups?: no Panel score (0-1 are the most socially isolated patients): 0 Duration: 30-45 minutes/day Frequency: 3-4 times per week Seatbelt use: always Helmet use: No 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 Do you feel safe at home: Yes Do you feel safe in your relationship?: Yes Exam Const General: cooperative, comfortable, no acute distress, well developed, frail appearing and ill appearing Nutritional Appearance: average body habitus and well nourished Orientation: alert and awake [facility] Head: normal to inspection Mouth: moist mucous membranes Neck Thyroid: thyroid normal Resp Effort & Inspection: normal respiratory effort, able to speak in complete sentences and no respiratory distress Auscultation: clear to auscultation bilaterally, no rales, no rhonchi and no wheezes Cardio Rate: bradycardic Rhythm: regular rhythm Heart Sounds: S1 normal and S2 normal GI Inspection: normal to inspection, no edema, non-distended and no obesity (last lost weight) Palpation: soft, firm (along right side there is an area of firmness), no guarding, no pulsatile masses, not rigid, nontender and No ascites Percussion: normal to percussion Auscultation: normal bowel sounds Skin General skin exam: no rashes or lesions noted Trauma: no lacerations or abrasions Neuro General: patient alert and patient awake Cognition: normal cognition Speech: speech normal Extrem General: normal to inspection, capillary refill normal, no joint enlargement, no pedal edema, no calf tenderness and other (2+ distal pulses) Psych Appearance: grossly normal and well kempt Mental Status: mental status grossly normal Speech and Movement: speech and movement normal Course Vital Signs Vital signs: Vital Signs Temperature 36.2 C L 08/01/23 17:11 Pulse 56 L 08/01/23 17:11 Respiratory Rate 20 08/01/23 17:11 Blood Pressure 113/60 08/01/23 17:11 Pulse Oximetry 100 08/01/23 17:11 Temperature 36.2 C L 08/01/23 17:11 Temperature Source Temporal Artery Scan 08/01/23 17:11 Pulse 56 L 08/01/23 17:11 Respiratory Rate 20 08/01/23 17:11 Blood Pressure 113/60 08/01/23 17:11 Blood Pressure Position Sitting 08/01/23 17:11 Pulse Oximetry 100 08/01/23 17:11 Oxygen Delivery Method Room Air 08/01/23 17:11 Oxygen Flow Rate 0 08/01/23 17:11 Pain Level 4 08/01/23 17:11
[2023-08-01 17:57] LABS: Abs Immature Grans 0.01 10^3/uL (0.0-0.06); HCT 22.3 % (36.0-46.0); HGB 7.2 g/dL (11.2-15.7); MCH 26.5 pg (27.0-33.0); MCHC 32.3 % (32.0-36.0); MCV 82 fL (80-95); MPV 9.3 fL (8.0-11.0); Platelet Count 371 10^3/uL (130-400); RBC 2.72 10^6/uL (3.93-5.22); RDW 17.8 % (11.7-14.6); RDW-SD 52.5 fL; WBC 9.43 10^3/uL (4.4-10.8)
--- NOTE | 2023-08-01 18:15 | RT.EKG_ITS ---
APPROVED REPORT Exam: Resting ECG Reason for Exam: bradycardia, fatigue Patient Location: E HR:48 bpm ECG Measurements Heart Rate 48 AXIS AK 153 P 57 QRSd 100 QRS 62 QT 451 T 32 QTc 404 Conclusion Sinus bradycardia...rate< 60 Low voltage, precordial leads...precordial leads <1.0mV sinus bradycardia, normal axis, normal intervals, non ischemic
[2023-08-01 18:28] LABS: ALT 104 U/L (14-59); AST 146 U/L (15-37); Albumin 3.4 g/dL (3.4-5.0); Anion Gap 7.1 mmol/L (3-11); BUN 17 mg/dL (7-18); Bilirubin, Total 0.5 mg/dL (0.2-1.0); CO2 28.9 mmol/L (21.0-32.0); CREATININE 1.1 mg/dL (0.55-1.02); Calcium 9.2 mg/dL (8.5-10.1); Chloride 100 mmol/L (98-107); Estimated GFR 66.37 (mL/min/1.73m2); Glucose 79 mg/dL (74-106); Potassium 3.8 mmol/L (3.5-5.1); Sodium 136 mmol/L (136-145); Total Protein 8.6 g/dL (6.4-8.2)
[2023-08-01 18:30] LABS: Alkaline Phosphatase 1069 U/L (46-116)
--- NOTE | 2023-08-01 18:30 | DI.CT_ITS ---
Exam(s) CT ABDOMEN PELVIS W EXAM: CT ABDOMEN PELVIS W CLINICAL HISTORY: right sided pain with radiation to the back hx SLE. TECHNIQUE: Imaging Protocol: Axial computed tomography images with coronal and sagittal reformatted images were created and reviewed CONTRAST MATERIAL: Intravenous: Omnipaque-350 100cc Oral: Yes. Oral contrast administered for bowel opacification. COMPARISON: CT CT ABDOMEN PELVIS W from 07/24/2023 FINDINGS: VISUALIZED LUNG BASES: No nodules nor pleural effusions evident. ABDOMEN: There is mild-moderate symmetrical bilateral anasarca in the subcutaneous fat tissues. LIVER: There are no focal hepatic lesions evident. No dilated intrahepatic ducts. GALLBLADDER/BILIARY: No obvious gallbladder pathology. CBD is not dilated. PANCREAS: Subtle hypodensity in the posterior pancreatic head around the region of the nondilated CBD may reflect inflammatory process such as pancreatitis; less likely neoplastic mass as this was not e vident on prior CT scan of 07/24/2023. Pancreatic duct is not dilated. SPLEEN: Spleen is again noted to be small and hyperdense, such as with auto infarction. Splenic and portal veins are patent. ADRENALS: There are no significant adrenal masses. KIDNEYS:No cysts evident. There is a 3 millimeter nonobstructive calculus in lower pole of the left k idney. No focal findings in the right kidney. Small 1 cm cyst in these inferior pole left kidney.. ABDOMINAL AORTA: Abdominal aorta is not enlarged. LYMPH NODES:Para-aortic adenopathy again noted, slightly more so than previous. ABDOMINAL WALL: No evidence of significant anterior abdominal wall nor inguinal hernia. GI: There is no evidence of bowel obstruction, free air, nor abscess. PELVIS: GI: No evidence of appendicitis.No evidence of sigmoid diverticulitis. LYMPH NODES: There is no intrapelvic nor inguinal adenopathy. REPRODUCTIVE: Uterus and adnexal regions unremarkable. URINARY BLADDER: No calculi nor obvious masses evident OSSEOUS: No fractures and no significant osseous lesions. IMPRESSION: 1. Findings in the pancreatic head which may indicate an element of pancreatitis. Pancreatic duct is not dilated. Correlation with appropriate blood work recommended. 2. Small hyperdense spleen again noted with features of auto infarction. 3. Abundant fecal material in the colon. Correlation any clinical signs of constipation recommended. No evidence of diverticulitis. RADIATION DOSE DELIVERED: 845.25mGy.cm Total DLP DATA REPOSITORY: All CT scans at this facility are submitted to the National Radiology Data Registry (NRDR) Dose Index Registry (DIR) with the [employer] (ACR). RADIATION OPTIMIZATION: All CT scans at this facility use at least one of these dose optimization te chniques: automated exposure control; mA and/or kV adjustment per patient size (includes targeted exa ms where dose is matched to clinical indication); or iterative reconstruction.
[2023-08-01 19:01] LABS: Absolute Basophil Count 0.19 10^3/uL (0.0-0.2); Absolute Eosinophil Count 0.85 10^3/uL (0.0-0.7); Absolute Lymphocyte Count 5.19 10^3/uL (1.2-3.4); Absolute Monocyte Count 0.57 10^3/uL (0.1-0.8); Absolute Neutrophil Count 2.64 10^3/uL (1.2-6.7); Atypical Lymphocytes % 2
[2023-08-01] MEDS: Normal Saline - Diluent 50 ML VIAL IJ (19:01)
[2023-08-01] MEDS: Omnipaque 350 MG/ML 100 ML BTL IJ (19:01)
[2023-08-01 19:02] LABS: Anisocytosis 1+; Diff Comment Manual Differential
[2023-08-01] MEDS: Normal Saline Flush 10 ML SYR IVP (19:02)
[2023-08-01 19:05] LABS: Poikilocytes 1+
--- NOTE | 2023-08-01 19:27 | DI.VRAD_ITS ---
PROCEDURE INFORMATION: Exam: CT Abdomen And Pelvis With Contrast Exam date and time: 08/01/2023 6:56 PM Age: 38 years old Clinical indication: Other: Right sided pain with radiation to the back HX sle; Prior surgery; Surgery date: 6+ months; Surgery type: Appendectomy and c-sections TECHNIQUE: Imaging protocol: Computed tomography of the abdomen and pelvis with contrast. Contrast material: OMNIPAQUE 350; Contrast volume: 100 ml; Contrast route: INTRAVENOUS (IV); COMPARISON: CT ABDOMEN PELVIS W 07/24/2023 2:53 PM FINDINGS: Lungs: Lung bases are clear. Pleural spaces: No pleural effusion. Heart: Normal heart size. No pericardial effusion. No coronary artery atherosclerotic calcium is visible. Liver: Diffuse mild fatty liver infiltration. Moderate hepatic enlargement. Transverse diameter of the liver is 24 cm. Cephalo caudal length of the liver 18 cm. Gallbladder and bile ducts: The gallbladder is normal in size and shape. No stones or inflammatory changes. Pancreas: Pancreas is normal in contour. There is mild pancreatic fullness. Features suggesting mild pancreatic inflammation. Consider acute pancreatitis. Recommend correlation with pancreatic serology. There is no pancreatic ductal dilatation. 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 Adrenal glands: The adrenal glands are normal in size and contour bilaterally. Kidneys and ureters: The kidneys bilaterally are unremarkable. Normal attenutation. No hydronephrosis. No calculi. Stomach and bowel: Gastric morphology is unremarkable. No edema. No gastric outlet obstruction. Small bowel loops with some mild fluid retention. No mechanical obstruction. This may represent a minor ileus or enteritis. Large bowel contains enteric contrast. There is no large bowel obstruction. There is no acute edema. There is formed feces with moderate fecal retention. Appendix: Previous appendectomy. Intraperitoneal space: Minor simple free fluid in the right colic gutter and adjacent to the tip of the liver. There is minimal free fluid in the left colic gutter. No free air. Vasculature: Unremarkable. No abdominal aortic aneurysm. Lymph nodes: Nonspecific subcentimeter retroperitoneal lymph nodes. No enlarged lymph nodes. Urinary bladder: Unremarkable as visualized. Reproductive: The uterus and adnexa are unremarkable in appearance. There are no dominant adnexal cysts or masslike features. There are no inflammatory features. No uterine mass evident. Appearance suggesting an intra vaginal menstrual tampon device. Bones/joints: No acute skeletal change. Soft tissues: Abdominal wall soft tissues are diffuse mild subcutaneous fatty stranding. Possibility of an anasarca process should be considered. Small fat containing right inguinal hernia without acute features. IMPRESSION: 1. Pancreatic parenchymal fullness and mild peripancreatic inflammatory features suggesting acute pancreatitis. Recommend clinical correlation with pancreatic serology. No gallstones. No pancreatic ductal or biliary ductal dilatation. 2. Hepatic steatosis and [id number] hepatic enlargement. 3. Spleen with features of auto infarction. Small size and hyperdense appearance. 4. Small bowel loops suggesting a mild enteritis process. 5. Minor simple free fluid in the abdomen and pelvic region. Dictated and Authenticated by: Iraj Miller MD. Ordering:LOTTIE Alexander MD
[2023-08-01 19:38] LABS: FREE T4 0.16 ng/dL (0.76-1.46)
[2023-08-01 19:41] LABS: PTT Activated 29.6 sec (21.5-31.9); Prothrombin Time 10.4 sec (9.3-11.0)
[2023-08-01 20:19] LABS: Lipase 38 U/L (16-77)
--- NOTE | 2023-08-01 21:39 | W.PM.HP.N ---
Date of service: 08/01/23 Time of Service: 21:39 Assessment and Plan Assessment and plan (1) Myxedema: Status: Acute Assessment and plan: She has decompensated hypothyroidism secondary to poor compliance with taking her levothyroxine. She has a palpable enlarged thyroid and has symptoms of myxedema including bradycardia mild hypotension and hypothermia as well as severe iron deficiency anemia and constipation as well as blepharoptosis and proptosis, sleep disturbance and fatigue. Patient will be admitted to the intensive care unit where she will receive parenteral levothyroxine as well as stress dose hydrocortisone. Case could be made for giving her an initial dose of liothyronine which is synthetic T3 however does carry some risk of causing cardiac arrhythmias if she gets too much of an initial dose. We will start with levothyroxine 300 mcg IV tonight and then give her 100 mcg IV daily. We will monitor daily TSH and free T4. I do not expect to see a significant change for a couple of days. We will await the rest of her laboratory work-up regarding her random cortisol level, tick panel, hepatitis profile. Her iron deficiency anemia may be due to his due to her vegan diet and her hypothyroidism leading to inability to absorb iron. We will start her on parenteral iron therapy. She did not have any audible pericardial rub. EKG showed no signs of pericarditis. Therefore I did not perform a POCUS exam looking for pericardial effusion. Her procalcitonin level was normal as was her WBCs. This makes infectious cause unlikely. Critical care time spent interviewing and examining the patient, reviewing studies, discussing case with patient's nurse and consulting physicians was 60 minutes minutes (2) Hypothyroidism: Status: Acute Qualifiers: Hypothyroidism type: unspecified Qualified Code(s): E03.9 - Hypothyroidism, unspecified (3) Sinus bradycardia: Status: Acute Assessment and plan: Monitor on telemetry in the intensive care unit. Give parenteral levothyroxine. Bradycardia should resolve over the next 48 to 72 hours. (4) Iron deficiency anemia: Status: Acute Assessment and plan: We will give the patient venofer 400 mg IV tomorrow morning then she should have additional 300 mg daily for 2 more days. (5) BELTRAN (nonalcoholic steatohepatitis): Status: Acute (6) SLE (systemic lupus erythematosus): Status: Acute Assessment and plan: Patient quit taking her lupus medication on her own. She said it was not working and she had side effects. Qualifiers: Systemic lupus erythematosus organ involvement: unspecified Systemic lupus erythematosus type: unspecified Qualified Code(s): M32.9 - Systemic lupus erythematosus, unspecified (7) Abdominal pain: Status: Acute Assessment and plan: Likely secondary to a combination of her hepatomegaly and her constipation. will give stool softeners. patient declines any laxatives (8) Menorrhagia: Status: Resolved Assessment and plan: consult supervisor plastering in the morning History of Present Illness History of Present Illness Chief Complaint: Dizziness and weakness, lower abdominal pain, abnormal labs Narrative: 38-year-old female with a history of hypothyroidism, iron deficiency anemia, depression, ADD, systemic lupus erythematosus, elevated transaminases secondary to BELTRAN who was sent to the emergency department by her primary care provider due to abnormal follow-up labs. Patient was found to have a hemoglobin of 7 g with a normal white count 9400 and normal platelet count of 370,000. Chemistry profile shows that she has an iron deficiency anemia with a serum iron of 17 and a TIBC of 458 with ferritin of 10. Transaminases are elevated with AST of 146, ALT 104, alkaline phosphatase 1069. BUN and creatinine are normal at 17 and 1.1 she has no electrolyte abnormalities glucose is normal at 79. Her TSH was found to be extremely elevated 364 low free T4 of 0.18. These were repeated this evening and found to be 256 and 0.16 respectively. Patient states that she has not taken her levothyroxine in over a year. She does not like the way it makes her feel and says that it does not work as well as Synthroid. Patient underwent a CT scan that was ordered by her primary care provider because of her complaints of abdominal and back pain and because of her anemia. Patient is convinced that she has some cancer. CT of the abdomen pelvis showed pancreatic parenchymal fullness and mild peripancreatic inflammation suggestive of acute pancreatitis with no gallstones and no pancreatic ductal or biliary ductal dilatation. There is hepatic steatosis with mild to moderate hepatic enlargement explain his features of autoinfarction with small size of hypodense appearance. Small bowel loops suggest mild enteritis. Although it was not read by the radiologist by my reading of her CT scan it appears that her colon is full of stool. Patient's symptoms of include fatigue, poor sleep. No associated chest pain or dyspnea. Does complain of her bones hurting in the back and abdomen hurting. Is been no vomiting no noticeable blood in her stools. After discussion with Catherine Saul, emergency room provider recommended she obtain a random cortisol level as well as a CK level and a procalcitonin level. We also got a folic acid level. Of note patient had a recent B12 level checked in the last month which was found to be elevated at 1420 pg/mL. Folate level today came back greater than 20. She had a lipase that was normal at 38. Cortisol level is pending at this time. We also obtain a tick panel and acute hepatitis profile. Patient is found to be bradycardic with heart rates in the 40s and 50s sinus bradycardia with no AV block. Patient has borderline low blood pressure 105/57 and a low temperature of 36.2. Her other blood pressure readings while in the emergency room ranged from as low as 87/49 to as high as 112/97. I recommended to Ms. Saul and to start the patient on stress dose hydrocortisone 100 mg IV every 8 hours and begin levothyroxine at 300 mcg IV immediately and then we will start her on 100 mcg of levothyroxine daily. We will also start her on some D5 LR. Talk with the patient sounds like she is very distrustful of the medical system and she quit taking her levothyroxine a year ago. She says it does not work for her and is since only Synthroid will work for her. She also states that she is intolerant to oral iron. No she has been told she is iron deficient and should take an iron supplement. I explained to the patient that she needs to stay on her levothyroxine and we are going to start her on parenteral form of levothyroxine and treat her iron deficiency anemia with parenteral iron. Review of Systems Constitutional Constitutional: Reports difficulty sleeping, Reports fatigue, Reports headache(s), Reports lethargy, Reports weakness and Reports weight loss Eyes Eyes: Reports system reviewed and no additional complaints, except as documented ENT Ears, Nose, Mouth, and Throat: Reports dizziness and Reports headache(s) Cardiovascular Cardiovascular: Reports system reviewed and no additional complaints, except as documented Respiratory Respiratory: Reports system reviewed and no additional complaints, except as documented Gastrointestinal Gastrointestinal: Reports as per HPI, Reports abdominal pain, Denies melena, Denies hematochezia, Reports cramping and Denies vomiting Genitourinary Genitourinary: Reports abnormal menses and Reports abnormal vaginal bleeding Musculoskeletal Musculoskeletal: Reports back pain Integumentary/Breasts Skin/Breast: Reports system reviewed and no additional complaints, except as documented Neurologic Neurologic: Reports dizziness, Reports headache(s) and Reports weakness Psychiatric Psychiatric: Reports system reviewed and no additional complaints, except as documented Endocrine Endocrine: Reports cold intolerance and Reports fatigue Hematologic/Lymphatic Hematologic/Lymphatic: Reports easy bleeding Allergic/Immunologic Allergic/Immunologic: Reports system reviewed and no additional complaints, except as documented PFSH All Active Problems (Updated 08/01/23 @ 23:25 by Vikas Milian MD) Abdominal pain (Acute) Sinus bradycardia (Acute) BELTRAN (nonalcoholic steatohepatitis) (Acute) Iron deficiency anemia (Acute) Myxedema (Acute) Elevated liver enzymes (Acute) Low hemoglobin (Acute) Weight loss (Acute) Hypothyroidism (Chronic) IUD (intrauterine device) in place (Acute) Depression (Chronic) Unspecified mood [affective] disorder (Acute) Chronic pain (Acute) RECURRENT BACK AND NECK PAIN NARCOTIC CONTRACT VOIDED AT REPLACED BY [facility] 10/2014 Fibromyalgia (Acute 05/01/15) like symptoms Idiopathic intracranial hypertension (Acute 03/25/18) SLE (systemic lupus erythematosus) (Acute 09/03/11) SLE/POSITIVE ANTICARDIOLIPIN, 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, dsDNA 1:180, C3 37, C4 2, LAC-, ANTI-CARDIOLIPIN IgG 49, IgM 3, Kikuchi-like presenttion with diffuse LAD, TT echo norla, Hypothyroidism (Acute 04/09/10) Leukocytosis (Acute 11/14/10) Anasarca (Acute 08/06/11) ADD (attention deficit disorder) (Acute 05/01/15) Medical History Closed fracture of distal end of left fibula (02/17/19) Migraine without aura and with status migrainosus, not intractable (04/22/18) Pyelonephritis (08/22/17) [facility]- RIGHT Surgical History Appendectomy (~2005) section x2 FRACTURE REPAIR 2008; NOSE, LEFT CHEEK BONE, RIGHT ORBITAL FX Ligation of fallopian tube 2008 LTL Myringotomy w/ PE (pressure equalizing) tubes MULTIPLE TIMES BETWEEN AGES 2-10 Oophrectomy, Right (~2008) Family History Mother Mental disorder Father Hyperlipidemia Sister Mental disorder Brother Mental disorder aunt Diabetes uncle Hyperlipidemia Grandfather Diabetes Social History Smoking/Tobacco Use Status: Former Tobacco Use Smoking risk assessment performed?: Yes Alcohol Intake: former Drug use: Occasionally Substance use type: marijuana Caregiver/Support person: No Household members: children Housing: apartment Number of Children: 2 current occupation: Disabled Pets and animals: Yes Pets and animals: dog(s) Sexually active: No Current gender identity: female What is your relationship status?: never How often do you talk on the phone with friends or family?: once per week How often do you get together with friends or relatives?: once per week Do you belong to any clubs or organized social groups?: no Panel score (0-1 are the most socially isolated patients): 0 Duration: 30-45 minutes/day Frequency: 3-4 times per week Seatbelt use: always Helmet use: No Drive intox or ride w/intox dedicated driver: No Do you feel safe at home: Yes Do you feel safe in your relationship?: Yes Meds Allergies and Home Medications Allergies Allergy/AdvReac Type Severity Reaction Status Date / Time hydromorphone HCl Allergy Severe Lips swell Verified 06/27/23 14:20 [From Dilaudid] prednisone Allergy Mild Skin Rash Verified 06/27/23 14:20 codeine AdvReac Severe severe GI Verified 06/27/23 14:20 upset Home Medications Medication Instructions Recorded Confirmed Type multivitamin with minerals-folic 1 tab PO 11/11/22 06/27/23 History acid 200 mcg chewable tablet (Multivitamin Gummies) ferrous sulfate 324 mg (65 mg 324 mg PO DAILY #90 tabs 07/25/23 Rx iron) tablet,delayed release levothyroxine 125 mcg tablet 125 mcg PO DAILY #90 tabs 07/25/23 Rx (Synthroid) Exam Narrative Exam Narrative: Alert and oriented x4 HEENT: Atraumatic normocephalic, pupils equally round reactive to light and accommodation, extraocular motion intact, she has proptosis and blepharoptosis, tongue appears borderline macroglossis, no oral exudates and teeth in fair repair Neck: Supple, nontender, thyroid is mildly diffusely enlarged, nontender, no adenopathy, normal carotid pulses Lungs: Clear to auscultation and percussion Heart: Regular rhythm but bradycardia without murmur rub or gallop. Normal apical impulse Abdomen: normal bowel sounds but liver feels to be enlarged, however did not appreciate splenomegaly, she is tender particularly in her back under right flank; no rebound tenderness Genitalia and rectal exam: Deferred Breasts: Deferred Extremities: Normal range of motion with normal strength. No peripheral cyanosis or edema. Normal pulses Neurologic: Cranial nerves II through XII grossly within normal limits. Normal strength and sensation over the face trunk and extremities. Results Labs 08/01/23 17:40 08/01/23 17:40 Labs: Laboratory Results - last 24 hr 08/01/23 08/01/23 08/01/23 17:40 17:40 17:40 WBC 9.43 RBC 2.72 L Hgb 7.2 L Hct 22.3 L MCV 82 MCH 26.5 L MCHC 32.3 RDW 17.8 H Plt Count 371 MPV 9.3 Immature Gran % See Differential Neutrophils % 28.0 Lymphocytes % 53.0 Atypical Lymphs % 2 Monocytes % 6.0 Eosinophils % 9.0 Basophils % 2.0 Nucleated RBC % 0.0 Absolute Neutrophils 2.64 Absolute Lymphocytes 5.19 H Absolute Monocytes 0.57 Absolute Eosinophils 0.85 H Absolute Basophils 0.19 RBC Morphology See Below Poikilocytosis 1+ Anisocytosis 1+ PT INR APTT Sodium 136 Potassium 3.8 Chloride 100 Carbon Dioxide 28.9 Anion Gap 7.1 BUN 17 Creatinine 1.1 H Est GFR (CKD-EPI 2020) 66.37 Glucose 79 Calcium 9.2 Total Bilirubin 0.5 AST 146 H ALT 104 H Alkaline Phosphatase 1069 H Total Protein 8.6 H Albumin 3.4 Lipase TSH Free T4 Patient ABO/Rh O Positive Antibody Screen NEGATIVE 08/01/23 08/01/23 08/01/23 17:40 17:40 19:13 WBC RBC Hgb Hct MCV MCH MCHC RDW Plt Count MPV Immature Gran % Neutrophils % Lymphocytes % Atypical Lymphs % Monocytes % Eosinophils % Basophils % Nucleated RBC % Absolute Neutrophils Absolute Lymphocytes Absolute Monocytes Absolute Eosinophils Absolute Basophils RBC Morphology Poikilocytosis Anisocytosis PT 10.4 INR 1.0 APTT 29.6 Sodium Potassium Chloride Carbon Dioxide Anion Gap BUN Creatinine Est GFR (CKD-EPI 2020) Glucose Calcium Total Bilirubin AST ALT Alkaline Phosphatase Total Protein Albumin Lipase 38 TSH 256.94 H Free T4 Patient ABO/Rh Antibody Screen 08/01/23 19:13 WBC RBC Hgb Hct MCV MCH MCHC RDW Plt Count MPV Immature Gran % Neutrophils % Lymphocytes % Atypical Lymphs % Monocytes % Eosinophils % Basophils % Nucleated RBC % Absolute Neutrophils Absolute Lymphocytes Absolute Monocytes Absolute Eosinophils Absolute Basophils RBC Morphology Poikilocytosis Anisocytosis PT INR APTT Sodium Potassium Chloride Carbon Dioxide Anion Gap BUN Creatinine Est GFR (CKD-EPI 2020) Glucose Calcium Total Bilirubin AST ALT Alkaline Phosphatase Total Protein Albumin Lipase TSH Free T4 0.16 L Patient ABO/Rh Antibody Screen Last Vital Signs Temp 36.2 C L 08/01/23 17:11 Pulse 49 L 08/01/23 20:01 Resp 15 08/01/23 20:13 BP 93/50 L 08/01/23 20:01 Pulse Ox 98 08/01/23 20:13 Time Spent Time spent with Patient: 55-74 minutes Time was spent: preparing to see the patient(eg.review tests), obtaining and/or reviewing separately otained hiistory, ordering medications,tests, procedures, referring, communicating with other health healthcare social worker, indepentently interpreting results, counseling the patient and care coordination
[2023-08-01 21:42] LABS: Creatine Kinase 593 U/L (26-192)
[2023-08-01] MEDS: Hydrocortisone SOD SUC. 100 MG VIAL IVP (22:01)
[2023-08-01] MEDS: Normal Saline 1,000 ML 125 ML IV (22:02)
[2023-08-01 22:08] LABS: Procalcitonin < 0.1 ng/mL
[2023-08-01] MEDS: Levothyroxine 100 MCG VIAL 300 MCG IVP (22:10)
[2023-08-01 22:35] LABS: Folate > 20.0 ng/mL (8.6-20.0)
[2023-08-01 23:35] LABS: COVID-19 PCR Negative (Negative); Influenza A PCR Negative (Negative); Influenza B PCR Negative (Negative); RSV PCR Negative (Negative)
[2023-08-01 23:37] LABS: Source Nasopharynx
[2023-08-02] VITALS (45 sets, daily range): BP systolic 75–108; BP diastolic 42–77; PULSE 39–62; RESP 4–25; TEMP 36.7–37.6; O2SAT 89–98
[2023-08-02] MEDS: Senna TAB 1 TAB PO ×2 (03:35→21:39)
[2023-08-02] MEDS: Docusate Sodium 100 MG CAP PO ×4 (03:35→20:39)
[2023-08-02] MEDS: Hydrocortisone SOD SUC. 100 MG VIAL IVP ×3 (06:24→21:39)
[2023-08-02 07:56] LABS: Abs Immature Grans 0.01 10^3/uL (0.0-0.06); Absolute Basophil Count 0.07 10^3/uL (0.0-0.2); Absolute Lymphocyte Count 1.55 10^3/uL (1.2-3.4); Absolute Monocyte Count 0.21 10^3/uL (0.1-0.8); Absolute Neutrophil Count 2.93 10^3/uL (1.2-6.7); Basophils % 1.5; HCT 23.5 % (36.0-46.0); HGB 7.4 g/dL (11.2-15.7); Immature Grans % 0.2; Lymphocytes % 32.5; MCH 26.1 pg (27.0-33.0); MCHC 31.5 % (32.0-36.0); MCV 83 fL (80-95); Monocytes % 4.4; Neutrophils % 61.4; Platelet Count 389 10^3/uL (130-400); RBC 2.84 10^6/uL (3.93-5.22); RDW 17.8 % (11.7-14.6); RDW-SD 52.5 fL; WBC 4.77 10^3/uL (4.4-10.8)
[2023-08-02 08:22] LABS: ALT 79 U/L (14-59); AST 99 U/L (15-37); Albumin 2.8 g/dL (3.4-5.0); Alkaline Phosphatase 956 U/L (46-116); Anion Gap 8.6 mmol/L (3-11); BUN 13 mg/dL (7-18); Bilirubin, Total 0.4 mg/dL (0.2-1.0); CO2 26.4 mmol/L (21.0-32.0); Calcium 8.4 mg/dL (8.5-10.1); Chloride 102 mmol/L (98-107); Estimated GFR 74.41 (mL/min/1.73m2); FREE T4 0.43 ng/dL (0.76-1.46); Glucose 120 mg/dL (74-106); Potassium 3.5 mmol/L (3.5-5.1); Sodium 137 mmol/L (136-145); Total Protein 7.7 g/dL (6.4-8.2)
[2023-08-02] MEDS: IRON SUCROSE COMPLEX 400 MG in Normal Saline 250 ML 100 MG IVPB (08:37)
[2023-08-02] MEDS: Levothyroxine 100 MCG VIAL IVP (08:49)
[2023-08-02] MEDS: Enoxaparin 40 MG/0.4 ML SYR SC (08:50)
[2023-08-02] MEDS: Normal Saline Flush 10 ML SYR IVP ×2 (08:50→14:08)
[2023-08-02 08:53] LABS: TSH 133.85 uIU/mL (0.36-3.74)
--- NOTE | 2023-08-02 09:51 | INITIAL_ITS ---
Date of service: 08/02/23 Time of Service: 09:51 Care Management Initial Assmt Initial Assessment REASON FOR HOSPITALIZATION:: Abdominal pain, iron deficiency anemia PREVIOUS FUNCTIONAL STATUS/SOCIAL/FAMILY SUPPORTS:: Tricia lives in [place] with her 2 son and daughter, both are in and go to [employer]. 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 During the day she works at [employer] and a few evenings per week she works at the [employer]. Per pt, she has 3 friends who live in [place] and are very supportive. Tricia has no family other than her kids due to inter-family conflict. Tricia drives and is active and independent at baseline. Tricia shares that she is very spiritual and is very big into eating organic and natural by choice but also because her body doesn't respond well to chemicals. CURRENT FUNCTIONAL STATUS:: Tricia was lying in bed when CM met with her. She is tearful at times and is able to engage in in-depth conversation. Tricia shares that she lives a holistic life and is spiritual. 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 Tricia feels very connected to her body and feels like she is not being taken seriously at times. Tricia shares that she is reluctant to take medications even though she is severe pain at this moment. Tylenol and Ibuprofen have been offered to patient and declined. ADVANCE DIRECTIVES:: None on file, CM will offer forms Has patient been provided with info about the portal/API?: Yes Did the patient sign up for the portal?: No CODE STATUS:: Full Code INSURANCE COVERAGE / FINANCIAL ISSUES:: Medicaid Medicare CURRENT HOME/COMMUNITY SERVICES/EQUIPMENT:: Tricia recently lost [place] [employer] for being less than $40 over income. LEIGHANN referral to help determine eligibility and discuss community resources CM provided info on local food shelves PRIMARY CARE PHYSICIAN:: Pal Brooks POTENTIAL DISCHARGE NEEDS:: Follow up appointment with PCP, LEIGHANN referral PATIENT/FAMILY EDUCATION NEEDS:: Review discharge instructions, limitations, medications and plan to follow up with community providers. Discuss ask me three and goals of self care. ANTICIPATED BARRIERS TO DISCHARGE:: None identified TRANSPORTATION:: private vehicle is located in the parking lot. Her Friend (Julienne Fernando or Fabi Strong) are also available to drive her home if needed. PLAN:: Anticipate Tricia will discharge home via private vehicle when medically cleared by provider. Pt will follow up with community providers and discharge plan of care as instructed. Evaluation for increased community needs would be beneficial. CM will follow. [facility] All Active Problems (Updated 08/02/23 @ 14:28 by JERARDO Montague) Constipation (Acute) Abdominal pain (Acute) Sinus bradycardia (Acute) BELTRAN (nonalcoholic steatohepatitis) (Acute) Iron deficiency anemia (Acute) Myxedema (Acute) Elevated liver enzymes (Acute) Low hemoglobin (Acute) Weight loss (Acute) Hypothyroidism (Chronic) IUD (intrauterine device) in place (Acute) Depression (Chronic) Unspecified mood [affective] disorder (Acute) Chronic pain (Acute) RECURRENT BACK AND NECK PAIN NARCOTIC CONTRACT VOIDED AT [facility] 10/2014 Fibromyalgia (Acute 05/01/15) like symptoms Idiopathic intracranial hypertension (Acute 03/25/18) SLE (systemic lupus erythematosus) (Acute 09/03/11) SLE/POSITIVE ANTICARDIOLIPIN, 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, dsDNA 1:180, C3 37, C4 2, LAC-, ANTI-CARDIOLIPIN IgG 49, IgM 3, Kikuchi-like presenttion with diffuse LAD, TT echo norla, Hypothyroidism (Acute 04/09/10) Leukocytosis (Acute 11/14/10) Anasarca (Acute 08/06/11) ADD (attention deficit disorder) (Acute 05/01/15) Medical History Closed fracture of distal end of left fibula (02/17/19) Migraine without aura and with status migrainosus, not intractable (04/22/18) Pyelonephritis (08/22/17) [facility]- RIGHT Surgical History Appendectomy (~2005) section x2 FRACTURE REPAIR 2008; NOSE, LEFT CHEEK BONE, RIGHT ORBITAL FX Ligation of fallopian tube 2008 LTL Myringotomy w/ PE (pressure equalizing) tubes MULTIPLE TIMES BETWEEN AGES 2-10 Oophrectomy, Right (~2008) Family History Mother Mental disorder Father Hyperlipidemia Sister Mental disorder Brother Mental disorder aunt Diabetes uncle Hyperlipidemia Grandfather Diabetes Social History Smoking/Tobacco Use Status: Former Tobacco Use Smoking risk assessment performed?: Yes Alcohol Intake: former Drug use: Occasionally Substance use type: marijuana Caregiver/Support person: No Household members: children Housing: apartment Number of Children: 2 current occupation: Disabled Pets and animals: Yes Pets and animals: dog(s) Sexually active: No Current gender identity: female What is your relationship status?: never How often do you talk on the phone with friends or family?: once per week How often do you get together with friends or relatives?: once per week Do you belong to any clubs or organized social groups?: no Panel score (0-1 are the most socially isolated patients): 0 Duration: 30-45 minutes/day Frequency: 3-4 times per week Seatbelt use: always Helmet use: No Drive intox or ride w/intox courtesy driver: No Do you feel safe at home: Yes Do you feel safe in your relationship?: Yes
--- NOTE | 2023-08-02 10:14 | DI.RAD_ITS ---
Exam(s) XR LUMBAR SPINE COMPLETE EXAM: XR LUMBAR SPINE COMPLETE CLINICAL HISTORY: back pain. TECHNIQUE: 2D digital imaging was performed. COMPARISON: No exams were available for comparison FINDINGS: Five views No evidence of fracture, listhesis, nor pars interarticularis defects. There is mild disc space narr owing at L5-S1 level at L4-5 level. No scoliosis. No osseous lesions. Bone density normal. SI mir nts unremarkable. IMPRESSION: Mild disc space narrowing in the lower lumbar spine. No fractures. No listhesis. DATA REPOSITORY: RADIATION DOSE DELIVERED:
--- NOTE | 2023-08-02 10:28 | DI.VRAD_ITS ---
PROCEDURE INFORMATION: Exam: XR Lumbosacral Spine Exam date and time: 08/02/2023 10:07 AM Age: 38 years old Clinical indication: Low back pain; Patient HX: Back pain. No known injury. TECHNIQUE: Imaging protocol: Radiologic exam of the lumbosacral spine. Views: 4 or 5 views. COMPARISON: CT ABDOMEN PELVIS W 08/01/2023 6:56 PM FINDINGS: Bones/joints: There is no evidence of acute fracture.There is no evidence of malalignment or dislocation. Intervertebral disc space narrowing at L5/S1 consistent with degenerative disc disease.. Soft tissues: Unremarkable. IMPRESSION: 1. There is no evidence of acute fracture.There is no evidence of malalignment or dislocation. 2. Intervertebral disc space narrowing at L5/S1 consistent with degenerative disc disease.. Dictated and Authenticated by: Leigh Ann Schulz MD. Ordering:NoéPRESBY[facility] ESPAÑOLA HOSPITALYoandy Bean MD
--- NOTE | 2023-08-02 11:17 | NUR.NOTE ---
IN CHART TO CHECK THE STATUS OF ECG ORDER Nursing Note:
--- NOTE | 2023-08-02 14:45 | PGE_ITS ---
Date of Service Date of service: 08/02/23 Time of Service: 14:46 Assessment and Plan Assessment and plan (1) Myxedema: Status: Acute Assessment and plan: She has decompensated hypothyroidism secondary to poor compliance with taking her levothyroxine. She has a palpable enlarged thyroid and has symptoms of myxedema including bradycardia mild hypotension and hypothermia, constipation as well as blepharoptosis and proptosis, sleep disturbance and fatigue. Has received doses of parenteral levothyroxine as well as stress dose hydrocortisone. Started with levothyroxine 300 mcg IV at time of admission, then give her 100 mcg IV daily. We will monitor daily TSH and free T4. We will await the rest of her laboratory work-up regarding her random cortisol level, tick panel, hepatitis profile. EKG showed no signs of pericarditis. (2) Hypothyroidism: Status: Acute Assessment and plan: As above Qualifiers: Hypothyroidism type: unspecified Qualified Code(s): E03.9 - Hypothyroidism, unspecified (3) Sinus bradycardia: Status: Acute Assessment and plan: Monitor on telemetry in the intensive care unit. Give parenteral levothyroxine. Bradycardia should resolve over the next 48 to 72 hours. (4) Iron deficiency anemia: Status: Acute Assessment and plan: Menorrhagia. CHIEF SCIENTIFIC OFFICER consulted. We will give the patient venofer 400 mg IV initially, then she should have additional 300 mg daily for 2 more days. (5) BELTRAN (nonalcoholic steatohepatitis): Status: Acute Assessment and plan: With ascites noted on CT. Bilirubin mildly elevated. (6) SLE (systemic lupus erythematosus): Status: Acute Assessment and plan: Patient quit taking her lupus medication on her own. She said it was not working and she had side effects. Qualifiers: Systemic lupus erythematosus type: unspecified Systemic lupus eryth ematosus organ involvement: unspecified Qualified Code(s): M32.9 - Systemic lupus erythematosus, unspecified (7) Abdominal pain: Status: Acute Assessment and plan: Likely secondary to a combination of her hepatomegaly and her constipation. will give stool softeners. patient declines any laxatives (8) Menorrhagia: Status: Resolved Assessment and plan: consult welder repair. Subjective Subjective Patient reports: no new complaints and afebrile; denies nausea, vomiting or s hortness of breath Interval history since last seen: Denies presyncope, syncope. R flank discomfort. Exam Narrative Exam Narrative: Gen. Appears older than stated age. Alert and oriented x4 HEENT: Atraumatic normocephalic, pupils equally round reactive to light and accommodation, extraocular motion intact, she has proptosis and blepharoptosis, tongue appears borderline macroglossis, no oral exudates and teeth in fair repair. MMMs. Neck: Supple, nontender, thyroid is mildly diffusely enlarged, nontender Lungs: Clear to auscultation. Nonlabored breathing. Heart: Regular rhythm, + bradycardia without murmur Abdomen: normal bowel sounds but liver feels to be enlarged. Tender particularly in her back under right flank; no rebound tenderness Extremities: No peripheral cyanosis or edema. Normal pulses Neurologic:No focal motor deficits. Psych: Affect is rather flat. Objective Last Vital Signs Temp 37 C 08/02/23 09:02 Pulse 46 L 08/02/23 14:13 Resp 15 08/02/23 14:13 BP 80/47 L 08/02/23 14:13 Pulse Ox 91 L 08/02/23 14:13 Laboratory Results - last 24 hr 08/01/23 08/01/23 08/01/23 17:40 17:40 17:40 WBC 9.43 RBC 2.72 L Hgb 7.2 L Hct 22.3 L MCV 82 MCH 26.5 L MCHC 32.3 RDW 17.8 H Plt Count 371 MPV 9.3 Immature Gran % See Differential Neutrophils % 28.0 Lymphocytes % 53.0 Atypical Lymphs % 2 Monocytes % 6.0 Eosinophils % 9.0 Basophils % 2.0 Nucleated RBC % 0.0 Absolute Neutrophils 2.64 Absolute Lymphocytes 5.19 H Absolute Monocytes 0.57 Absolute Eosinophils 0.85 H Absolute Basophils 0.19 RBC Morphology See Below Poikilocytosis 1+ Anisocytosis 1+ PT INR APTT Sodium 136 Potassium 3.8 Chloride 100 Carbon Dioxide 28.9 Anion Gap 7.1 BUN 17 Creatinine 1.1 H Est GFR (CKD-EPI 2020) 66.37 Glucose 79 Calcium 9.2 Total Bilirubin 0.5 AST 146 H ALT 104 H Alkaline Phosphatase 1069 H Creatine Kinase Total Protein 8.6 H Albumin 3.4 Lipase Folate Procalcitonin TSH Free T4 COVID-19 Source SARS-CoV-2 (PCR) Influenza Type A (PCR) Influenza Type B (PCR) RSV (PCR) Patient ABO/Rh O Positive Antibody Screen NEGATIVE 08/01/23 08/01/23 08/01/23 17:40 17:40 17:40 WBC RBC Hgb Hct MCV MCH MCHC RDW Plt Count MPV Immature Gran % Neutrophils % Lymphocytes % Atypical Lymphs % Monocytes % Eosinophils % Basophils % Nucleated RBC % Absolute Neutrophils Absolute Lymphocytes Absolute Monocytes Absolute Eosinophils Absolute Basophils RBC Morphology Poikilocytosis Anisocytosis PT INR APTT Sodium Potassium Chloride Carbon Dioxide Anion Gap BUN Creatinine Est GFR (CKD-EPI 2020) Glucose Calcium Total Bilirubin AST ALT Alkaline Phosphatase Creatine Kinase 593 H Total Protein Albumin Lipase 38 Folate Procalcitonin TSH 256.94 H Free T4 COVID-19 Source SARS-CoV-2 (PCR) Influenza Type A (PCR) Influenza Type B (PCR) RSV (PCR) Patient ABO/Rh Antibody Screen 08/01/23 08/01/23 08/01/23 17:40 19:13 19:13 WBC RBC Hgb Hct MCV MCH MCHC RDW Plt Count MPV Immature Gran % Neutrophils % Lymphocytes % Atypical Lymphs % Monocytes % Eosinophils % Basophils % Nucleated RBC % Absolute Neutrophils Absolute Lymphocytes Absolute Monocytes Absolute Eosinophils Absolute Basophils RBC Morphology Poikilocytosis Anisocytosis PT 10.4 INR 1.0 APTT 29.6 Sodium Potassium Chloride Carbon Dioxide Anion Gap BUN Creatinine Est GFR (CKD-EPI 2020) Glucose Calcium Total Bilirubin AST ALT Alkaline Phosphatase Creatine Kinase Total Protein Albumin Lipase Folate Procalcitonin < 0.1 TSH Free T4 0.16 L COVID-19 Source SARS-CoV-2 (PCR) Influenza Type A (PCR) Influenza Type B (PCR) RSV (PCR) Patient ABO/Rh Antibody Screen 08/01/23 08/01/23 08/02/23 20:15 22:54 07:50 WBC RBC Hgb Hct MCV MCH MCHC RDW Plt Count MPV Immature Gran % Neutrophils % Lymphocytes % Atypical Lymphs % Monocytes % Eosinophils % Basophils % Nucleated RBC % Absolute Neutrophils Absolute Lymphocytes Absolute Monocytes Absolute Eosinophils Absolute Basophils RBC Morphology Poikilocytosis Anisocytosis PT INR APTT Sodium 137 Potassium 3.5 Chloride 102 Carbon Dioxide 26.4 Anion Gap 8.6 BUN 13 Creatinine 1.0 Est GFR (CKD-EPI 2020) 74.41 Glucose 120 H Calcium 8.4 L Total Bilirubin 0.4 AST 99 H ALT 79 H Alkaline Phosphatase 956 H Creatine Kinase Total Protein 7.7 Albumin 2.8 L Lipase Folate > 20.0 H Procalcitonin TSH 133.85 H Free T4 0.43 L COVID-19 Source Nasopharynx SARS-CoV-2 (PCR) Negative Influenza Type A (PCR) Negative Influenza Type B (PCR) Negative RSV (PCR) Negative Patient ABO/Rh Antibody Screen 08/02/23 08/02/23 07:50 07:50 WBC 4.77 RBC 2.84 L Hgb 7.4 L Hct 23.5 L MCV 83 MCH 26.1 L MCHC 31.5 L RDW 17.8 H Plt Count 389 MPV 9.0 Immature Gran % 0.2 Neutrophils % 61.4 Lymphocytes % 32.5 Atypical Lymphs % Monocytes % 4.4 Eosinophils % 0.0 Basophils % 1.5 Nucleated RBC % 0.0 Absolute Neutrophils 2.93 Absolute Lymphocytes 1.55 Absolute Monocytes 0.21 Absolute Eosinophils 0.00 Absolute Basophils 0.07 RBC Morphology Poikilocytosis Anisocytosis PT INR APTT Sodium Potassium Chloride Carbon Dioxide Anion Gap BUN Creatinine Est GFR (CKD-EPI 2020) Glucose Calcium Total Bilirubin AST ALT Alkaline Phosphatase Creatine Kinase Total Protein Albumin Lipase Folate Procalcitonin TSH Free T4 Cancelled COVID-19 Source SARS-CoV-2 (PCR) Influenza Type A (PCR) Influenza Type B (PCR) RSV (PCR) Patient ABO/Rh Antibody Screen PAWSS Have you Been Recently Intoxicated or Drunk Within the Last 30 days?: No Have you Ever Experienced Previous Episodes of Alcohol Withdrawal?: No Have you ever Experienced Withdrawal Seizures?: No Have you ever Experienced Delirium Tremens(DT)s?: No Have you ever undergone Alcohol Rehabilitation Treatment (i.e, inpt ot outpatient treatment programs)?: No Have you ever Experienced Blackouts?: No Have you ever Combined Alcohol with other Downers within the last 90 days?: No Have you ever Combined Alcohol with any other Substance of Abuse during the last 90 days?: No Positive Blood Alcohol level on Presentation? [PCS.BAL]: No Evidence of Increased Autonomic Activity (i.e. HR>120, tremor, sweating, agitation, nausea)?: No Result: 0 Time Spent with Patient Time Spent with Patient: 35-49 minutes Time was spent: preparing to see the patient(eg.review tests), obtaining and/or reviewing separately [facility], ordering medications,tests, procedures, referring, communicating with other health aged or disabled care worker, indepentently interpreting results and counseling the patient
[2023-08-02] MEDS: traMADol 50 MG TAB PO (17:09)
[2023-08-02] MEDS: Lidocaine 5% Patch 1 PATCH TP (17:09)
[2023-08-03] VITALS (23 sets, daily range): BP systolic 97–111; BP diastolic 58–68; PULSE 43–67; RESP 0–23; TEMP 36.1–37.1; O2SAT 94–97
[2023-08-03] MEDS: traMADol 50 MG TAB PO (02:01)
[2023-08-03] MEDS: Normal Saline 500 ML 150 ML IV (04:24)
[2023-08-03] MEDS: Patch Removal 1 EACH TP (05:05)
[2023-08-03] MEDS: Hydrocortisone SOD SUC. 100 MG VIAL IVP ×3 (06:05→21:03)
[2023-08-03 07:01] LABS: Lab Add On Test DONE
[2023-08-03 07:26] LABS: ALT 79 U/L (14-59); AST 100 U/L (15-37); Albumin 2.6 g/dL (3.4-5.0); Alkaline Phosphatase 955 U/L (46-116); Anion Gap 6.1 mmol/L (3-11); BUN 14 mg/dL (7-18); Bilirubin, Total 0.3 mg/dL (0.2-1.0); CO2 26.9 mmol/L (21.0-32.0); CREATININE 0.8 mg/dL (0.55-1.02); Calcium 8.8 mg/dL (8.5-10.1); Chloride 104 mmol/L (98-107); Estimated GFR 97.26 (mL/min/1.73m2); Glucose 111 mg/dL (74-106); Potassium 4.4 mmol/L (3.5-5.1); Sodium 137 mmol/L (136-145); Total Protein 7.7 g/dL (6.4-8.2)
[2023-08-03 07:34] LABS: FREE T4 0.42 ng/dL (0.76-1.46)
[2023-08-03] MEDS: Docusate Sodium 100 MG CAP PO ×3 (08:02→21:04)
[2023-08-03] MEDS: Enoxaparin 40 MG/0.4 ML SYR SC (08:02)
[2023-08-03] MEDS: IRON SUCROSE COMPLEX 300 MG in Normal Saline 250 ML 167 MG IVPB (08:03)
[2023-08-03] MEDS: Levothyroxine 100 MCG VIAL IVP (08:03)
[2023-08-03 08:13] LABS: TSH 106.55 uIU/mL (0.36-3.74)
[2023-08-03] MEDS: Magnesium Citrate 300 ML BTL 150 ML PO (09:40)
[2023-08-03] MEDS: Lidocaine 5% Patch 1 PATCH TP (10:18)
--- NOTE | 2023-08-03 11:24 | PHA.REVIEW2 ---
Pharmacy Admission Review Admission Clinical Review Admission Pharmacy Review: (Updated 08/02/23 @ 14:28 by JERARDO Montague) Constipation (Acute) Abdominal pain (Acute) Sinus bradycardia (Acute) BELTRAN (nonalcoholic steatohepatitis) (Acute) Iron deficiency anemia (Acute) Myxedema (Acute) Elevated liver enzymes (Acute) Low hemoglobin (Acute) SLE (systemic lupus erythematosus) (Acute 09/03/11) Hypothyroidism (Acute 04/09/10) hydromorphone HCl [From Dilaudid] Allergy (Severe, Verified 06/27/23 14:20) Lips swell prednisone Allergy (Mild, Verified 06/27/23 14:20) Skin Rash codeine Adverse Reaction (Severe, Verified 06/27/23 14:20) severe GI upset Resuscitation Status Full Code Height 5 ft 7 in Weight 80.1 kg Pharmacy Admission Review Renal Dosing Renal Dosing: BUN 14 mg/dL (7-18) 08/03/23 06:15 Creatinine 0.8 mg/dL (0.55-1.02) 08/03/23 06:15 Medications needing adjustments: Reviewed (n/a - crcl ~104) Anticoagulation Anticoagulation: Hgb 7.4 g/dL (11.2-15.7) L 08/02/23 07:50 Hct 23.5 % (36.0-46.0) L 08/02/23 07:50 Plt Count 389 10^3/uL (130-400) 08/02/23 07:50 INR 1.0 (0.9-1.1) 08/01/23 19:13 Creatinine 0.8 mg/dL (0.55-1.02) 08/03/23 06:15 DVT Prophylaxis: Reviewed Medications: Enoxaparin (40 mg q24h) Therapeutic Anticoagulation: N/A Opiate Usage Evaluate Pain Scale/Pains Meds: Reviewed (tramadol prn, minimal use) Scheduled Bowel Reg ordered if on Opiates?: Yes Relevant Labs Relevant Labs: Sodium 137 mmol/L (136-145) 08/03/23 06:15 Potassium 4.4 mmol/L (3.5-5.1) 08/03/23 06:15 Chloride 104 mmol/L (98-107) 08/03/23 06:15 Electrolytes, C-Reactive P, ESR: Reviewed (TSH coming down: 214.65 on admission, now 106.55) DM Control DM Control: N/A Cardiac Review BP, HR, EF%: Reviewed (hypotensive, bradycardic (related to myxedema, should resolve w/IV thyroid supplementation). on telemetry) QTc Review QTc: Not Reviewed (EKG done in ED upon admission, report not resulted in chart) IV to PO Switch IV Medications: Reviewed (IV levothyroxine for myxedema, switch to PO when able) Home Meds Home Med List reviewed: Reviewed Relevent Home Meds Not ordered & why?: ferrous sulfate not ordered, pt is receiving IV iron sucrose daily. Medication adherence barriers identified?: pt has been noncompliant w/levothyroxine for a significant amount of time, reportedly it's been roughly a year. per H&P, she doesn't like the way it makes her feel and does not feel the generic works as well as brand name Synthroid (per Rx fill history, last Rx was picked up 07/26/23 #90 tabs, previous to that 11/16/22 #90) Current Meds Current Medication Order Review: Reviewed Comments: IV levothyroxine ordered 100 mcg daily (80% of home PO dose 125 mcg - appropriate PO to IV conversion)
[2023-08-03] MEDS: Normal Saline Flush 10 ML SYR IVP (13:07)
--- NOTE | 2023-08-03 16:00 | W.PM.PROGNOT ---
Date of Service Date of service: 08/03/23 Time of Service: 08:30 Assessment and Plan Assessment and plan (1) Myxedema: Status: Acute Assessment and plan: She has decompensated hypothyroidism secondary to poor compliance with taking her levothyroxine. She has a palpable enlarged thyroid and has symptoms of myxedema including bradycardia mild hypotension and hypothermia, constipation as well as blepharoptosis and proptosis, sleep disturbance and fatigue. Recieving doses of parenteral levothyroxine as well as stress dose hydrocortisone. Started with levothyroxine 300 mcg IV at time of admission, then give her 100 mcg IV daily. We will monitor daily TSH and free T4. TSH: 364>>>106. Random cortisol level, tick panel, hepatitis profile pending. EKG showed no signs of pericarditis. Echocardiogram ordered. (2) Hypothyroidism: Status: Acute Assessment and plan: As above Qualifiers: Hypothyroidism type: unspecified Qualified Code(s): E03.9 - Hypothyroidism, unspecified (3) Sinus bradycardia: Status: Acute Assessment and plan: Monitor on telemetry in the intensive care unit. Give parenteral levothyroxine. Bradycardia should resolve over the next 48 to 72 hours. (4) Iron deficiency anemia: Status: Acute Assessment and plan: Menorrhagia. F/U with outpt PCP to discuss further. Administering venofer 400 mg IV initially, then she should have additional 300 mg daily for 2 more days. (5) BELTRAN (nonalcoholic steatohepatitis): Status: Acute Assessment and plan: With ascites noted on CT. LFT's elevated but have trended downward. (6) SLE (systemic lupus erythematosus): Status: Acute Assessment and plan: Patient quit taking her lupus medication on her own. She said it was not working and she had side effects. Qualifiers: Systemic lupus erythematosus type: unspecified Systemic lupus erythematosus organ involvement: unspecified Qualified Code(s): M32.9 - Systemic lupus erythematosus, unspecified (7) Abdominal pain: Status: Acute Assessment and plan: Likely secondary to a combination of her hepatomegaly and her constipation. will give stool softeners and mag citrate. patient declines any laxatives Improved. (8) Menorrhagia: Status: Resolved Assessment and plan: Outpt f/u with PCP Subjective Subjective Patient reports: no new complaints, feels better, pain is less (Right low back; lidoderm patch reportedly helping) and afebrile; denies nausea, vomiting or shortness of breath Exam Narrative Exam Narrative: Gen. Sitting up in bed. Conversant. NAD HEENT: mild proptosis and blepharoptosis, tongue appears borderline macroglossis Neck: Supple, nontender, thyroid is mildly diffusely enlarged, nontender Lungs: Clear to auscultation. Nonlabored breathing. Heart: Regular rhythm, + bradycardia without murmur Abdomen: NT. +BS. Extremities: No edema or calf tenderness Neurologic:No focal motor deficits. Psych: Affect is appropriate Objective Last Vital Signs Temp 37.1 C 08/03/23 08:00 Pulse 59 L 08/03/23 12:30 Resp 15 08/03/23 11:13 BP 106/68 08/03/23 11:13 Pulse Ox 94 08/03/23 11:13 Laboratory Results - last 24 hr 08/01/23 08/03/23 08/03/23 20:15 06:15 06:15 Sodium 137 Potassium 4.4 Chloride 104 Carbon Dioxide 26.9 Anion Gap 6.1 BUN 14 Creatinine 0.8 Est GFR (CKD-EPI 2020) 97.26 Glucose 111 H Calcium 8.8 Total Bilirubin 0.3 AST 100 H ALT 79 H Alkaline Phosphatase 955 H Total Protein 7.7 Albumin 2.6 L TSH 106.55 H Free T4 0.42 L Cortisol 5 Add-On Test Request 08/03/23 Unknown Sodium Potassium Chloride Carbon Dioxide Anion Gap BUN Creatinine Est GFR (CKD-EPI 2020) Glucose Calcium Total Bilirubin AST ALT Alkaline Phosphatase Total Protein Albumin TSH Free T4 Cortisol Add-On Test Request DONE PAWSS Have you Been Recently Intoxicated or Drunk Within the Last 30 days?: No Have you Ever Experienced Previous Episodes of Alcohol Withdrawal?: No Have you ever Experienced Withdrawal Seizures?: No Have you ever Experienced Delirium Tremens(DT)s?: No Have you ever undergone Alcohol Rehabilitation Treatment (i.e, inpt ot outpatient treatment programs)?: No Have you ever Experienced Blackouts?: No Have you ever Combined Alcohol with other Downers within the last 90 days?: No Have you ever Combined Alcohol with any other Substance of Abuse during the last 90 days?: No Positive Blood Alcohol level on Presentation? [PCS.BAL]: No Evidence of Increased Autonomic Activity (i.e. HR>120, tremor, sweating, agitation, nausea)?: No Result: 0 Time Spent with Patient Time Spent with Patient: 25-34 minutes Time was spent: preparing to see the patient(eg.review tests), obtaining and/or reviewing separately otained hiistory, ordering medications,tests, procedures, referring, communicating with other health rehab care assistant, indepentently interpreting results and counseling the patient
[2023-08-03] MEDS: Senna TAB 1 TAB PO (21:04)
[2023-08-03] MEDS: Lidocaine Patch Removal 1 EACH TP (23:13)
[2023-08-04] MEDS: traMADol 50 MG TAB PO (00:29)
[2023-08-04] MEDS: Hydrocortisone SOD SUC. 100 MG VIAL IVP (06:05)
[2023-08-04] MEDS: Normal Saline Flush 10 ML SYR IVP (06:06)
[2023-08-04 06:34] VITALS: BP 93/55; PULSE 55; RESP 20; TEMP 36.4; O2SAT 95
[2023-08-04 06:51] LABS: HCT 24.4 % (36.0-46.0); HGB 7.6 g/dL (11.2-15.7)
[2023-08-04] MEDS: Enoxaparin 40 MG/0.4 ML SYR SC (07:15)
[2023-08-04] MEDS: Lidocaine 5% Patch 1 PATCH TP (07:16)
[2023-08-04] MEDS: Docusate Sodium 100 MG CAP PO (07:16)
[2023-08-04 07:29] LABS: FREE T4 0.43 ng/dL (0.76-1.46)
[2023-08-04 07:34] LABS: ALT 87 U/L (14-59); AST 94 U/L (15-37); Albumin 2.7 g/dL (3.4-5.0); Alkaline Phosphatase 972 U/L (46-116); Anion Gap 3.5 mmol/L (3-11); BUN 15 mg/dL (7-18); Bilirubin, Total 0.2 mg/dL (0.2-1.0); CO2 29.5 mmol/L (21.0-32.0); CREATININE 0.7 mg/dL (0.55-1.02); Calcium 8.7 mg/dL (8.5-10.1); Chloride 103 mmol/L (98-107); Estimated GFR 114.16 (mL/min/1.73m2); Glucose 113 mg/dL (74-106); Potassium 3.8 mmol/L (3.5-5.1); Sodium 136 mmol/L (136-145); TSH 90.18 uIU/mL (0.36-3.74); Total Protein 7.5 g/dL (6.4-8.2)
--- NOTE | 2023-08-04 08:00 | DI.US_ITS ---
APPROVED REPORT EXAM: Comprehensive 2D, Doppler, and color-flow Echocardiogram Patient Location: In-Patient Room/Bed: [facility] [place] Operator: Willem Zelaya RDCS (AE) Indications: myxedema Other Information Study Quality: Good Conclusion Normal left ventricular wall thickness and chamber size. Ejection fraction is 60%. Wall motion is n ormal Normal right ventricular size and systolic function Both atria are normal in size Trileaflet aortic valve without stenosis or regurgitation Normal mitral valve with mild regurgitation Normal tricuspid valve with mild to moderate regurgitation. Estimated right ventricular systolic pre ssure is 22 mmHg Wall motion Left Ventricle The left ventricle is normal size. The left ventricular systolic function is normal. The left ventric ular ejection fraction is within the normal range. There is normal left ventricular wall thickness. T here is normal LV segmental wall motion. There is no ventricular septal defect visualized. LVEF is 60 %. Right Ventricle The right ventricle is normal size. The right ventricular systolic function is normal. 'The RVSP is 2 2.1 mmHg. Atria The left atrium size is normal. The right atrium size is normal. The interatrial septum is intact wit h no evidence for an atrial septal defect. Aortic Valve The aortic valve is normal in structure. Aortic valve is trileaflet. There is no aortic valvular sten osis. No aortic regurgitation is present. Mitral Valve The mitral valve is normal in structure. No evidence of mitral valve stenosis. Mild mitral regurgitat ion. Tricuspid Valve The tricuspid valve is normal in structure. There is no tricuspid valve stenosis. Mild to moderate tr icuspid regurgitation. Pulmonic Valve The pulmonary valve is normal in structure. There is no pulmonic valvular stenosis. Trace pulmonic re gurgitation. Great Vessels The aortic root is normal in size. The ascending aorta is normal in size. Aortic arch is normal in ca liber. IVC is normal in size and collapses >50% with inspiration. Pericardium No pericardial effusion. 2D Dimensions IVSD d PLAX 0.82 cm F: 0.6-1.0 Ao Root d 3.01 cm F: 2.7 - 3.3 LVPW d PLAX 0.82 cm F: 0.6 - 1.0 Ao Asc Diam d 2.93 cm F: 2.3 - 3.1 LVID d PLAX 5.30 cm F: 3.8 - 5.2 LVDs 3.62 cm F: 2.2 - 3.5 LV EF Teichholz 59.2 % FS 31.65 % LV EDV (Teich) 135.2 mL LV ESV (Teich) 55.2 mL Stroke Vol Index (Teich) 41.69 M-Mode TAPSE 2.74 cm (M/F) >1.7 Auto EF LV EDV A4C 129.2 mL LV EDV A2C 133.4 mL LV EDV BP 136.4 mL LV ESV A4C 52.0 mL LV ESV A2C 56.1 mL LV ESV BP 53.9 mL LVEF(%) A4C 59.7 % LVEF(%) A2C 57.9 % LVEF(%) BP 60.5 % LV SV A4C 77.1 ml LV SV A2C 77.3 ml LV SV BP 82.5 ml LV CO A4C 4.2 L/min LV CO A2C 4.2 L/min LV CO BP 4.2 L/min HR A4C 54.88 BPM HR A2C 54.30 BPM LV EDV Index (BP) LA Volume LA Length A4C 5.0 cm LA Length A2C LA Area A4C s 14.17 cm2 LA Area A2C s LA Vol A4C A-L 34.17 mL LA Vol A2C A-L LA Vol Biplane A-L LA Vol A4C MOD 33.0 mL LA Vol A2C MOD LA Vol BP MOD RA Volume RA Area A4C 10.6 cm2 RA ESV A4C (A-L) 23.5mL RA Vol/BSA A4C A-L RA Length A4C 4.1 cm RA ESV A4C (MOD) 23.5mL LV Diastology MV E' medial 0.113 (>0.07 m/s) MV E Vmax 1.04 (0.4-1.3 m/s) MV E/E' MED 9.22 (<14) MV A Vmax 0.45 (0.4-1.3 m/s) MV E' lateral 0.154 (>0.1 m/s) E/A Ratio 2.3 MV E/E' LAT 6.77 (<14) MV E' Average 0.134 m/s MV E/E'(average) 7.81 Aortic Valve AoV Vmax 1.62 m/s LVOT Vmax 1.23 m/s AoV Peak Grad 10.5 mmHg LVOT Peak Grad 6.0 mmHg AoV Area (Vmax) 2.64 cm2 LVOT VTI 0.290 m AoV VTI 0.382 m LVOT Mean Grad 3.4 mmHg AoV Mean Callum. 1.08 m/s LVOT SV 101.03 mL AoV Mean Grad 5.5 mmHg LVOT Diam s 2.10 cm AoV Area (VTI) 2.64 cm2 Velocity Ratio 0.76 Mitral Valve MV DT 176 (160-240 msec) Pulmonary Valve PV Vmax 0.86 (0.5-1.5 m/s) RVOT Vmax 0.60 m/s PV Peak Grad 2.9 mmHg RVOT Peak Gr. 1.4 mmHg PV Mean Callum 0.63 m/s RVOT VTI 0.151 m PV Mean Grad 1.8 mmHg RVOT Mean Gr. 0.7 mmHg Tricuspid Valve RA Pressure 3.00 mmHg TR Vmax 2.19 m/s TR Peak Grad 19.1 mmHg RVSP (TR) 22.1 mmHg
--- NOTE | 2023-08-04 08:54 | NUR.NOTE ---
Accessed chart to determine orders for EKG and to determine whether or not one needs to be cancelled. Nursing Note:
[2023-08-04] MEDS: Levothyroxine 100 MCG VIAL IVP (09:36)
[2023-08-04] MEDS: IRON SUCROSE COMPLEX 300 MG in Normal Saline 250 ML 167 MG IVPB (09:37)
[2023-08-04 09:47] LABS: Lyme Ab w Rflx to Lyme Confirm Negative (Negative)
--- NOTE | 2023-08-04 10:47 | W.PM.DS.N ---
Date of service: 08/04/23 Time of Service: 10:48 DS: Diagnosis Discharge Diagnosis (1) Myxedema: Status: Acute Asessment and Plan: She has decompensated hypothyroidism secondary to poor compliance with taking her levothyroxine.? She has a palpable enlarged thyroid and has symptoms of myxedema including bradycardia mild hypotension and hypothermia, constipation as well as blepharoptosis and proptosis, sleep disturbance and fatigue. Received doses of parenteral levothyroxine as well as stress dose hydrocortisone.? Started? with levothyroxine 300 mcg IV at time of admission, then give her 100 mcg IV daily.? TSH: 364>>>106>90. Random cortisol level was 5; low normal. Tick panel, hepatitis profile pending. EKG showed no signs of pericarditis.? Echocardiogram with normal EF and no wall motion abnormalities. Normal chamber sizes. (2) Hypothyroidism: Status: Acute (3) Sinus bradycardia: Status: Acute Asessment and Plan: As above. (4) Iron deficiency anemia: Status: Acute Asessment and Plan: Menorrhagia is the primary etiology. F/U with outpt PCP to discuss further. Administered venofer 400 mg IV initially, then additional 300 mg daily for 2 more days. (5) BELTRAN (nonalcoholic steatohepatitis): Status: Acute Asessment and Plan: With some ascites noted. Elevated transaminases improved but remained mildly elevated. Viral hepatitis panel negative. (6) SLE (systemic lupus erythematosus): Status: Acute Asessment and Plan: No longer taking any medications for SLE (7) Abdominal pain: Status: Acute Asessment and Plan: Resolved. CT abd/pelvis did show subtle hypodensity in the posterior pancreatic head around the region of the nondilated CBD may reflect inflammatory process such as pancreatitis; less likely neoplastic mass as this was not evident on prior CT scan of 07/24/2023.? Pancreatic duct is not dilated. Lipase normal. Pain was not prominent and resolved. Continue to monitor as outpt. (8) Menorrhagia: Status: Resolved Asessment and Plan: Outpt evaluation and treatment indicated. She has received 1 gram of Venofer. Discharge Plan Disposition Patient Disposition: Home Condition: Improving Discharge Details Reason For Visit: Myxedema, blood loss anemia, menorrhagia Admit Date/Time: 08/01/23 21:22 Admit Provider: Vikas Milian Attending Provider: Vikas Milian Primary Care Provider: Pal Brooks Hospital Course Hospital Course: This is a 38-year-old female with a history of hypothyroidism, iron deficiency anemia, depression, ADD, systemic lupus erythematosus, elevated transaminases secondary to BELTRAN who was sent to the emergency department by her primary care provider due to abnormal follow-up labs.? Patient was found to have a hemoglobin of 7 g with a normal white count 9400 and normal platelet count of 370,000.? Chemistry profile shows that she has an iron deficiency anemia with a serum iron of 17 and a TIBC of 458 with ferritin of 10.? Transaminases are elevated with AST of 146, ALT 104, alkaline phosphatase 1069.? BUN and creatinine are normal at 17 and 1.1 she has no electrolyte abnormalities glucose is normal at 79.? Her TSH was found to be extremely elevated 364 low free T4 of 0.18.? These were repeated and found to be 256 and 0.16 respectively. Patient states that she has not taken her levothyroxine in over a year. She does not like the way it makes her feel and says that it does not work as well as Synthroid. Patient underwent a CT scan that was ordered by her primary care provider because of her complaints of abdominal and back pain and because of her anemia.? Patient is convinced that she has some cancer.? CT of the abdomen pelvis showed pancreatic parenchymal fullness and mild peripancreatic inflammation suggestive of acute pancreatitis with no gallstones and no pancreatic ductal or biliary ductal dilatation.? There is hepatic steatosis with mild to moderate hepatic enlargement explain his features of autoinfarction with small size of hypodense appearance.? Small bowel loops suggest mild enteritis.? Although it was not read by the radiologist by my reading of her CT scan it appears that her colon is full of stool. Patient's symptoms of include fatigue, poor sleep.? No associated chest pain or dyspnea.? Does complain of her bones hurting in the back and abdomen hurting.? Is been no vomiting no noticeable blood in her stools. A random cortisol level as well as a CK level and a procalcitonin level were ordered and pending at time of admission. Of note patient had a recent B12 level checked in the last month which was found to be elevated at 1420 pg/mL. She had a lipase that was normal at 38.?? We also obtain a tick panel and acute hepatitis profile. Patient was bradycardic with heart rates in the 40s and 50s sinus bradycardia with no AV block.? Patient had borderline low blood pressure 105/57 and a low temperature of 36.2.? Her other blood pressure readings while in the emergency room ranged from as low as 87/49 to as high as 112/97. Stress dose hydrocortisone 100 mg IV every 8 hours initiated. Began levothyroxine at 300 mcg IV immediately and then change to 100 mcg of IV levothyroxine daily.?. Talk with the patient sounds like she is very distrustful of the medical system and she quit taking her levothyroxine a year ago.? She says it does not work for her and is since only Synthroid will work for her.? She also states that she is intolerant to oral iron.? No she has been told she is iron deficient and should take an iron supplement. See Diagnosis PCP in 1-2 weeks Home Meds and New Rx's Prescriptions: New lidocaine 5 % Adhesive Patch,Medicated 1 patch topical Q24H Qty: 30 0RF Continued Multivitamin Gummies 200 mcg tablet,chewable 1 tab PO ferrous sulfate 324 mg (65 mg iron) tablet,delayed release (DR/EC) 324 mg PO DAILY Qty: 90 0RF levothyroxine [Synthroid] 125 mcg tablet 125 mcg PO DAILY Qty: 90 3RF Discharge Instructions Instructions: Iron Rich Diet (DC), Anemia (DC) Stand Alone Forms: Nursing Discharge Form Referrals: Pal Brooks NP [Primary Care Provider] - 08/21/23 1:40 pm Activity:: Activity as Tolerated Equipment/Supplies:: No Equipment Needed Diet:: Resume home diet Discharge Orders Discharge Orders: Discharge Order (Routine); Ordered 08/04/23 Ordered By: Vamsi Patel DS: Summary Time Spent with Patient providing and/or coordinating discharge services: Greater than 30 minutes Status at Discharge Functional status at discharge: independent ambulation Overall status at discharge: patient is progressing back to baseline Mental Status: mental status grossly normal Speech and Movement: speech and movement normal Mood: congruent mood Affect: normal affect Exam Psych Mental Status: mental status grossly normal Speech and Movement: speech and movement normal Mood: congruent mood Affect: normal affect DS: Data Vitals/I&O Vitals and I&O: Vital Signs Temperature 36.4 C L 08/04/23 06:34 Temperature Source Tympanic 08/04/23 06:34 Pulse 55 L 08/04/23 06:34 Pulse Rhythm Regular 08/04/23 07:47 Pulse 53 L 08/03/23 12:00 Respiratory Rate 20 08/04/23 06:34 Respiratory Effort Normal, Non-Labored 08/04/23 07:47 Respiratory Depth Normal 08/04/23 07:47 Respiratory Pattern Normal 08/04/23 07:47 Blood Pressure 93/55 L 08/04/23 06:34 Blood Pressure Mean 79 08/03/23 11:13 Blood Pressure Position Supine 08/02/23 17:16 Pulse Oximetry 95 08/04/23 06:34 Oxygen Delivery Method Room Air 08/04/23 06:34 Oxygen Flow Rate 0 08/04/23 06:34 Pain Level 10 08/04/23 00:29 Intake & Output 08/03/23 08/03/23 08/04/23 11:59 23:59 11:59 Intake Total 3015 / 3015 Output Total 400 / 400 Balance 2615 / 2615 Weight 80.6 kg Intake: IV 2775 / 2775 Oral 240 / 240 Output: Urine 400 / 400 Other: Urine Color Ferrer Yellow Urine Appearance Clear Clear Comment bathroom privilege's Stool Occult Blood Negative Stool Size Large Stool Characteristics Soft Formed Brown Black Voiding Methods Bedside Commode Toilet Toilet Data Completed and Pending Labs on day of discharge: Labs from last 24 hours 08/04/23 08/04/23 08/04/23 06:09 06:09 06:09 Hgb 7.6 L Hct 24.4 L Sodium 136 Potassium 3.8 Chloride 103 Carbon Dioxide 29.5 Anion Gap 3.5 BUN 15 Creatinine 0.7 Est GFR (CKD-EPI 2020) 114.16 Glucose 113 H Calcium 8.7 Total Bilirubin 0.2 AST 94 H ALT 87 H Alkaline Phosphatase 972 H Total Protein 7.5 Albumin 2.7 L TSH 90.18 H Free T4 0.43 L Cortisol 08/01/23 20:15 Hgb Hct Sodium Potassium Chloride Carbon Dioxide Anion Gap BUN Creatinine Est GFR (CKD-EPI 2020) Glucose Calcium Total Bilirubin AST ALT Alkaline Phosphatase Total Protein Albumin TSH Free T4 Cortisol 5 PFSH All Active Problems Constipation (Acute) Abdominal pain (Acute) Sinus bradycardia (Acute) BLETRAN (nonalcoholic steatohepatitis) (Acute) Iron deficiency anemia (Acute) Myxedema (Acute) Elevated liver enzymes (Acute) Low hemoglobin (Acute) Weight loss (Acute) Hypothyroidism (Chronic) IUD (intrauterine device) in place (Acute) Depression (Chronic) Unspecified mood [affective] disorder (Acute) Chronic pain (Acute) RECURRENT BACK AND NECK PAIN NARCOTIC CONTRACT VOIDED AT [facility], 1928–1983 10/2014 Fibromyalgia (Acute 05/01/15) like symptoms Idiopathic intracranial hypertension (Acute 03/25/18) SLE (systemic lupus erythematosus) (Acute 09/03/11) SLE/POSITIVE ANTICARDIOLIPIN, 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, dsDNA 1:180, C3 37, C4 2, LAC-, ANTI-CARDIOLIPIN IgG 49, IgM 3, Kikuchi-like presenttion with diffuse LAD, TT echo norla, Hypothyroidism (Acute 04/09/10) Leukocytosis (Acute 11/14/10) Anasarca (Acute 08/06/11) ADD (attention deficit disorder) (Acute 05/01/15) Medical History Closed fracture of distal end of left fibula (02/17/19) Migraine without aura and with status migrainosus, not intractable (04/22/18) Pyelonephritis (08/22/17) [facility] ED- RIGHT Surgical History Appendectomy (~2005) section x2 FRACTURE REPAIR 2008; NOSE, LEFT CHEEK BONE, RIGHT ORBITAL FX Ligation of fallopian tube 2008 LTL Myringotomy w/ PE (pressure equalizing) tubes MULTIPLE TIMES BETWEEN AGES 2-10 Oophrectomy, Right (~2008) Family History Mother Mental disorder Father Hyperlipidemia Sister Mental disorder Brother Mental disorder aunt Diabetes uncle Hyperlipidemia Grandfather Diabetes Social History Smoking/Tobacco Use Status: Former Tobacco Use Smoking risk assessment performed?: Yes Alcohol Intake: former Drug use: Occasionally Substance use type: marijuana Caregiver/Support person: No Household members: children Housing: apartment Number of Children: 2 current occupation: Disabled Pets and animals: Yes Pets and animals: dog(s) Sexually active: No Current gender identity: female What is your relationship status?: never How often do you talk on the phone with friends or family?: once per week How often do you get together with friends or relatives?: once per week Do you belong to any clubs or organized social groups?: no Panel score (0-1 are the most socially isolated patients): 0 Duration: 30-45 minutes/day Frequency: 3-4 times per week Seatbelt use: always Helmet use: No Drive intox or ride w/intox moving van driver: No Do you feel safe at home: Yes Do you feel safe in your relationship?: Yes Time Spent with Patient Time Spent with Patient: 45-69 minutes Time was spent: preparing to see the patient(eg.review tests), obtaining and/or reviewing separately otained hiistory, referring, communicating with other health medicare sales executive, indepentently interpreting results, counseling the patient and care coordination
[2023-08-04 11:00] VITALS: BP 115/71; PULSE 56; RESP 18; TEMP 36.9; O2SAT 96
[2023-08-04 11:48] LABS: Hepatitis A Antibody IgM Negative (Negative); Hepatitis B Core Antibody Negative (Negative); Hepatitis B surface Ag Negative (Negative); Hepatitis C Ab w Rflx HCV PCR Negative (Negative)
--- NOTE | 2023-08-04 11:54 | PDOC.CMDIS ---
Date of service: 08/04/23 Time of Service: 11:55 LACE Index Scoring Tool Questions: Length of Stay (in days): 3 Was the patient admitted via the E.D.?: Yes Comorbidities: Liver or Renal Disease E.D. Visits: 0 Answers: Total Score: 11 Risk of Readmission: High Risk Care Management Discharge Plan Reason for Hospitalization: Abdominal pain, iron deficiency anemia Discharge Plan: Tricia returned home today with no new services. A referral was sent to [facility] for support with community resources. She will drive herself home, as she has her car in the parking lot. CM provided two letters for her places of employment, at her request. She will follow up with her PCP and discharge plan of care. Patient/Family Education Needs: Review discharge instructions and limitations, discussion of self care needs including ask me three.
--- NOTE | 2023-08-04 12:18 | W.NUTCONSULT ---
Date of service: 08/04/23 Time of Service: 12:18 Nutritional Consult ASSESSMENT: Tricia is a 38yo female admitted with abdominal pain with constipation and found to be anemic. PMH also significant for SLE, elevated liver enzymes - BELTRAN. Pt with no documented true allergies, however, she imposes diet restrictions on herself. Namely gluten free, and mostly vegan diet (although she does consume butter, eggs, fish and other animal derived foods). She seems to focus on exclusion rather than inclusion when it comes to her food choices. She does not drink town water and therefor often was sent bottled Smart water at her meals - she says she did not drink these much because she can taste the electrolytes in them. It is possible this type of selectivity might lead to lower fluid intake. She reports having normal formed BM this morning. NUTRITIONAL DIAGNOSIS: Altered GI function (constipation) in relation to a low fiber and fluid intake on most days, as evidenced by self-imposed diet restrictions we discussed in my assessment. INTERVENTION: discussed importance of meeting fluid needs (assessed at 1823mL/day) by drinking baseling of 60oz of non-caffeinated fluid and aiming for water-rich produce. encouraged working up to minumum of 30-35g fiber daily and provided nutrition education handouts with menu plan tips. gave pt my card to contact with any questions or if she'd like to set up outpt visits to go over menu planning for fiber rich meals and snacks MONITORING AND EVALUATION: will remain available for any nutrition education needs Time Spent in Nutritional Counseling and Treatment: 30 minutes
[2023-08-05 23:23] LABS: Anaplasma phagocytophilum Negative (Negative); B. miyamotoi PCR Negative (Negative); Babesia divergens/MO-1 Negative (Negative); Babesia duncani Negative (Negative); Babesia microti Negative (Negative); Ehrlichia chaffeensis Negative (Negative); Ehrlichia ewingii/canis Negative (Negative); Ehrlichia muris eauclairensis Negative (Negative)
== END 2023-08-04 12:45 | disposition home or self-care (01) | DRG 645 ==
LOC: ER 17:50 → ICU 23:14 → MS 08-03 15:55
PROVIDERS: Family Medicine; Admitting Provider Internal Medicine; Emergency Provider Physician Assistant; PCP Nurse Practitioner Family; Visit Provider Internal Medicine
DX: E03.2 Hypothyroidism due to medicaments and other exogenous substances (principal); T38.1X6A Underdosing of thyroid hormones and substitutes, initial encounter; R68.0 Hypothermia, not associated with low environmental temperature; R10.9 Unspecified abdominal pain; D64.9 Anemia, unspecified; M32.9 Systemic lupus erythematosus, unspecified; K59.00 Constipation, unspecified; F32.A Depression, unspecified; M79.7 Fibromyalgia; F98.8 Other specified behavioral and emotional disorders with onset usually occurring in childhood and adolescence; I95.9 Hypotension, unspecified; R00.1 Bradycardia, unspecified; H02.403 Unspecified ptosis of bilateral eyelids; G47.9 Sleep disorder, unspecified; R53.83 Other fatigue; K75.81 Nonalcoholic steatohepatitis (NASH); N92.0 Excessive and frequent menstruation with regular cycle; G93.2 Benign intracranial hypertension; G43.009 Migraine without aura, not intractable, without status migrainosus; F12.90 Cannabis use, unspecified, uncomplicated; Z87.891 Personal history of nicotine dependence; Z91.128 Patient's intentional underdosing of medication regimen for other reason
CPT/HCPCS: 36415; 80053; 82533; 82550; 83690; 84145; 86704; 86709; 86803; 86850; 86900; 86901; 87340; 87637; 87798; 93005; 96361; 96374; 96375; 99285; J1650; 72110; 74177; 82746; 84439; 84443; 85014; 85018; 85025; 85610; 85730; 86618; 93010; 93306; 99223; 99232; 99233; 99239; J1720; J1756; J3490

== ENCOUNTER → 2023-08-08 11:33 | Outpatient (CLI) | payer MEDICAID, SELFPAY ==
--- NOTE | 2023-08-08 08:30 | DI.US_ITS ---
Exam(s) US UPPER EXTREMITY VENOUS LT EXAM: US UPPER EXTREMITY VENOUS LT CLINICAL HISTORY: IV site swelling T80.1XXA VASCULAR COMPLICATIONS. TECHNIQUE: Ultrasound examination of the left upper extremity venous system(s) is performed using gr ayscale, color-flow, and spectral Doppler analysis. COMPARISON: No exams were available for comparison FINDINGS: The left internal jugular, axillary, subclavian and brachial veins are patent without evidence of thr ombosis. There is thrombus seen in the superficial basilic and median cubital veins. It measures in length 6.6 cm. IMPRESSION: 1. No DVT. 2. Superficial thrombophlebitis involving the basilic and median cubital veins. DATA REPOSITORY:
== END ==
PROVIDERS: PCP Nurse Practitioner Family; Visit Provider Nurse Practitioner Family
DX: T80.1XXA Vascular complications following infusion, transfusion and therapeutic injection, initial encounter (principal); I82.613 Acute embolism and thrombosis of superficial veins of upper extremity, bilateral
CPT/HCPCS: 93971

== ENCOUNTER 2023-11-13 15:59 | Outpatient (REF) | payer MEDICAID, SELFPAY ==
--- NOTE | 2023-11-13 13:30 | PAPFT_PTH ---
PATIENT: Tricia Calderón LOC: [facility] U#:[id number] AGE/SX: 38/F ROOM: RE11/13/[address]: Pal Brooks NP : 1985 BED: DIS: 11/13/2023 SPEC #: [id number] RECD: 11/14/23 12:56 STATUS: SCOT REKitty #: [id number] ANISH: 11/13/23 13:[address]: Pal Brooks DEPT[facility] Cytology RECD BY: Maty Valentin Tissues: 1 - CX/ENDOCX FOR PAP SMEARS Procedures: PAP THIN PREP/UVM Screening HPV DNA PROBE Comments: [id number]
== END 2023-11-13 16:00 | disposition home or self-care (01) ==
LOC: LBN 15:59
PROVIDERS: PCP Nurse Practitioner Family; Visit Provider Nurse Practitioner Family
DX: Z12.4 Encounter for screening for malignant neoplasm of cervix (principal); Z11.51 Encounter for screening for human papillomavirus (HPV)
CPT/HCPCS: 88142; 87624

== ENCOUNTER 2024-11-19 00:37 | Outpatient (CLI) | payer MEDICAID, SELFPAY ==
--- NOTE | 2024-11-19 07:15 | DI.US_ITS ---
Exam(s) US SOFT TISS EXTREMITY/GROIN EXAM: US SOFT TISS EXTREMITY/GROIN CLINICAL HISTORY: palpable mass right inguinal area, inguinal bulge, R19.09. TECHNIQUE: Ultrasound was performed using standard protocol. COMPARISON: CT CT ABDOMEN PELVIS W from 08/01/2023 FINDINGS: Sonographic assessment utilizing grayscale and color Doppler imaging was performed and targeted to th e area of clinical concern. The right inguinal region was scanned. No hernia was demonstrated. There are multiple lymph nodes i n the right groin region which have normal morphology. No suspicious lymph nodes. IMPRESSION: Normal appearing right groin lymph nodes. No suspicious mass or adenopathy. No hernia is demonstrat ed. DATA REPOSITORY:
== END 2024-11-19 00:57 ==
LOC: DI 00:37
PROVIDERS: PCP Nurse Practitioner Family; Visit Provider Nurse Practitioner Family
DX: R19.09 Other intra-abdominal and pelvic swelling, mass and lump (principal)
CPT/HCPCS: 76882

== ENCOUNTER 2024-12-24 00:46 | Outpatient (CLI) | payer MEDICAID, SELFPAY ==
[2024-12-24 17:02] LABS: Hemoglobin A1C 5.4 % (<5.7)
[2024-12-24 17:14] LABS: Calculated LDL 134 mg/dL (<100); Cholesterol 231 mg/dL (<200); HDL Cholesterol 84 mg/dL (40-60); TSH (W/Ref FT4) 22.69 uIU/mL (0.36-3.74); Triglyceride 66 mg/dL (<150)
[2024-12-24 17:33] LABS: FREE T4 0.95 ng/dL (0.76-1.46)
== END 2024-12-24 00:47 | disposition home or self-care (01) ==
PROVIDERS: PCP Nurse Practitioner Family; Visit Provider Nurse Practitioner Family
DX: Z13.1 Encounter for screening for diabetes mellitus (principal); E03.9 Hypothyroidism, unspecified; Z13.220 Encounter for screening for lipoid disorders
CPT/HCPCS: 36415; 80061; 83036; 84439; 84443

== ENCOUNTER 2025-06-02 16:50 | Outpatient (CLI) | payer MEDICAID, SELFPAY ==
[2025-06-02 18:40] LABS: TSH (W/Ref FT4) 11.05 uIU/mL (0.36-3.74)
== END 2025-06-02 16:51 | disposition home or self-care (01) ==
LOC: LBO 16:51
PROVIDERS: PCP Family Medicine; Visit Provider Family Medicine
DX: E03.9 Hypothyroidism, unspecified (principal)
CPT/HCPCS: 36415; 84439; 84443